=== PATIENT | female | born 1995 | race Caucasian/White ===

== ENCOUNTER 2020-04-29 19:15 | Inpatient (IN) | payer BC, MEDICAID, SELFPAY ==
[2020-04-29] VITALS (12 sets, daily range): BP systolic 107–159; BP diastolic 51–87; PULSE 73–111; RESP 17–18; TEMP 36.7–37.1; O2SAT 95–100; BMI 40.6
[2020-04-29] MEDS: Lactated Ringers 1,000 ML 999 ML IV (19:25)
[2020-04-29 19:53] LABS: Absolute Lymphocyte Count 1.83 X10^3/uL (0.83-4.51); Basophil# 0.02 X10^3/uL; Basophil% 0.2 % (0-1); Eosinophil# 0.17 X10^3/uL; Eosinophils% 1.9 % (0-5); Hematocrit 31.2 % (37-47); Hemoglobin 9.2 g/dL (12.0-15.0); Lymphocyte # 1.83 X10^3/ul (4.0); Lymphocyte % 20.3 % (19-41); Mean Corp Hgb Conc 29.5 g/dL (32-36); Mean Corpuscular Hgb 24.3 pg (27.0-32.0); Mean Corpuscular Volume 82.5 fL (81-99); Mean Platelet Vol. 10.5 fl (6.2-12.0); Monocyte% 8.9 % (0-10); NRBC Flagged by Analyzer 0.3 % (0-5); Neutrophil # 6.04 X10^3/uL (2.7-7.7); Neutrophil % 67.1 % (47-70); POSITIVE MORPHOLOGY YES; Platelet Count 253 K/mm3 (150-450); RBC Distribution Width CV 22.1 % (11.6-14.6); Red Blood Count 3.78 M/mm3 (4.2-5.4)
[2020-04-29 19:54] LABS: Differential Indicated SCAN CRITERIA MET
[2020-04-29 20:04] LABS: Partial Thromboplast Time 27.8 Seconds (24.1-36.2); Prothrombin Time (Protime)PT. 12.5 SECONDS (11.7-14.9)
[2020-04-29 20:08] LABS: AST(SGOT) 23 U/L (15-37); Alanine Aminotransfer ALT/SGPT 14 U/L (13-56); Creatinine, Serum 0.52 mg/dL (0.55-1.02); EST Glomerular Filtration Rate 153 mL/min (>60); Est Glom Filt Rate - Afr Amer 186 mL/min (>60); Uric Acid 4.2 mg/dL (2.6-6.0)
[2020-04-29 20:09] LABS: Protein, Urine (Random) 14.4 mg/dL (<11.9); Protein:Creat Ratio 303 mg/g CRE (0-200)
[2020-04-29] MEDS: Sodium Citrate/Citric Acid 30 ML UDC PO (20:19)
--- NOTE | 2020-04-29 20:19 | PCM.HP.OB ---
- Problem List (1) 38 weeks gestation of Status: Acute (2) History of section Status: Acute (3) Preeclampsia Status: Acute History Date of Admission: 04/29/20 Final OFELIA: 05/15/20 Gestational age: 37 Weeks and 5 Days History of this : This is a 24 year-old, G 3, P 2, at 38 weeks gestational age who presents to OB triage with elevated blood pressures at home and a persistent headache despite taking 1,000 mg of Tylenol. She sees an outside OB provider. She reports she went to her OB providers office today for an appointment. In the office she says her blood pressures were in the 150s over 90s and she reported a headache and visual changes. She says she was sent home after her appointment with her OB provider. She generally has not felt well, and she feels like something is wrong. She took 1000 mg of Tylenol and her headache did not go away. Earlier in the day she noted visual changes that have since resolved. Because she is generally feeling unwell she presented to our OB triage for further evaluation. She denies epigastric pain, right upper quadrant pain, nausea, vomiting. No vaginal bleeding leaking of fluid or contractions. Good movement. Allergies No Known Allergies Allergy (Verified 12/06/16 20:33) Home Medications: Home Medications Ferrous Sulfate [Iron Supplement] 325 mg PO BID 10/10/14 Ondansetron HCl [Zofran] 4 mg PO Q8H PRN PRN 12/06/16 Vits [Prenatabs FA] 1 tab PO DAILY 04/29/20 Smoking Status: Never smoker Number of Fetus(es): 1 NST - FHR Rate Baby A FHR Category:: Category I Uterine Activity:: Quiet History Past Pregnancies: Past Pregnancies Delivery Date Name GA/ Weeks Outcome Route Wt Sex Labor Length Anesthesia Delivery Location Provider FOB Labs: Unable to read labs that were scanned to us. Calling for another set of labs. If unable to obtain labs, will drawn NOB panel Expected Infant Delivery Method: Repeat Section Review of Systems Eyes: Denies: Blurred vision HEENT: Reports: Head Aches Cardiovascular: Denies: Chest Pain Respiratory: Denies: Cough, Shortness of Breath Gastrointestinal: Denies: Abdominal Pain Genitourinary: Denies: Dysuria Gynecological: Denies: Vaginal bleeding Neurological: Denies: Blurred vision, Double vision Psychiatric: Denies: Anxiety, Depression Hematologic/ Lymphatic: Denies: Easy Bruising, Easy Bleeding Physical Exam Vitals: Vital Signs Temp Pulse BP 98.8 F 110 H 150/87 H 04/29/20 18:38 04/29/20 19:48 04/29/20 19:48 General: Alert, No apparent distress HEENT: Atraumatic Lungs: Normal air movement Abdomen: Soft, Gravid, - - +RUQ tenderness Extremities:: No edema Neurological: Deep Tendon Reflexes 2+/4 and Symmetrical, Neuro grossly intact Estimated gestational size: Appropriate for gestational size Assessment/Plan All Active Problems 38 weeks gestation of (Acute) History of section (Acute) Preeclampsia (Acute) This is a 24 year-old, G 3, P 2, at 38 weeks gestational age admitted for a repeat section for pre-eclampsia. -She has had mild range blood pressures earlier in the office today, as well as at home. Since being in OB triage she has had persistent mild range blood pressures. She has had a persistent headache despite Tylenol. Her blood work is normal, but her protein creatinine ratio is 303. Discussed preeclampsia with patient. Discussed possibly needing magnesium for seizure prophylaxis, and indications for a magnesium drip. Recommended delivery. All questions answered. Discussed risk, benefits, alternatives to a repeat section. She has a history of anemia with a hemoglobin of 7 per her report in the . She refused IV iron transfusions. Hemoglobin now is 9. Discussed increased risk for a blood transfusion. The patient provided consent, and desires to proceed with a repeat section. Routine preop care. If unable to get records, will draw panel.
[2020-04-29] MEDS: Lactated Ringers 1,000 ML 150 ML IV (20:30)
[2020-04-29 20:31] LABS: Anisocytosis 3+; Platelet Estimate ADEQUATE (ADEQ); Polychromasia 1+
[2020-04-29] MEDS: Acetaminophen 500 MG Tablet 1000 MG PO (20:33)
[2020-04-29] MEDS: Cefazolin 2 GM in 0.9% Normal Saline 100 ML IV (20:39)
[2020-04-29 21:00] LABS: Amphetamine Urine VISTA NEGATIVE (<1000 ng/mL); Barbiturate Urine VISTA NEGATIVE (< 200 ng/mL); Benzodiazepine Urine VISTA NEGATIVE (< 200 ng/mL); Cocaine Urine VISTA NEGATIVE (< 300 ng/mL); Ecstacy Urine VISTA NEGATIVE (< 500 ng/mL); Methadone Urine VISTA NEGATIVE (< 300 ng/mL); PCP Urine VISTA NEGATIVE (< 25 ng/mL); THC Urine VISTA NEGATIVE (< 50 ng/mL); Vista UDS pH Range 7
--- NOTE | 2020-04-29 21:58 | PCM.PN.BLA ---
Progress Note Patient's NELSON has improved. She now has no pre-e symptoms. Discussed to let us know if she develops a NELSON or visual changes, and will start mag gtt at that time for seizure prophylaxis. Will also start mag gtt if she has any severe range BP's. STROKE Vital Signs/Narrative: Vital Signs Temp Pulse BP 04/29/20 19:48 110 H 150/87 H 04/29/20 19:11 111 H 159/87 H 04/29/20 18:53 97 147/81 H 04/29/20 18:38 98.8 F 97 153/71 H
[2020-04-29] MEDS: Oxytocin 30 units/NS 500 ml 30 UNITS/500 ML IV.SOLN 167 UNITS IV (22:00)
--- NOTE | 2020-04-29 22:04 | PCM.OPRPT ---
Problem List (1) 38 weeks gestation of Status: Acute (2) History of section Status: Acute (3) Preeclampsia Status: Acute Report of Operation Date of Procedure: 04/29/20 Pre-Operative Diagnosis: 38 week gestation, history of prior section, pre-eclampsia Post-Operative Diagnosis: As above Surgery/Procedure Performed:: RLTCS via pfannenstiel incision Description of Surgical Findings:: Moderate adhesive disease. The fascia was dense and adhered significantly to the rectus muscles. The rectus muscles were adhered in the midline. The bladder was moderately adhered to the anterior surface of the uterus. Normal-appearing uterus, bilateral tubes, bilateral ovaries. Clear fluid. Infant vertex presentation. Normal-appearing placenta with three-vessel cord. Type of Anesthesia:: Spinal Special Medications: None Specimen's removed: Placenta Drains: Mcnally Estimated Blood Loss (mL): 900 Fluids Replaced: 1700 Description of Procedure: Patient was taken to the operating room where spinal anesthesia was found to be adequate. She was prepped and draped in the dorsal position with a leftward tilt. A Pfannenstiel skin incision was made with a scalpel which was carried down to the underlying layer of fascia. The fascia was incised in the midline. The fascia was extended laterally using Valencia scissors. The fascia was noted to be densely adhered to the rectus muscles. The fascia was dissected off of the rectus muscles using a combination of sharp and blunt dissection. The rectus muscles were in the midline using a combination of sharp and blunt dissection. The peritoneum was then entered with good visualization of the bladder. The peritoneal incision was extended bluntly. The bladder was noted to be moderately adhered to the uterus. A bladder flap was created. A low transverse incision was made on the uterus. The membranes were ruptured for clear fluid. A viable female infant was delivered in vertex presentation without any force or delay. Vigorous female infant was delivered. The cord was clamped and cut after a 60 sec delay. There was manually extracted and noted to be normal-appearing with a three-vessel cord. Uterus was exteriorized from the abdomen. The uterus was cleared of all clot and debris. The hysterotomy was closed in a running locked fashion. Several additional [id number] sutures were placed for hemostasis. The uterus was then placed back in the abdomen. Hysterotomy was again inspected and noted to be hemostatic. The fascia was then closed in a running fashion. Subcutaneous space was irrigated and made hemostatic with the Bovie cautery. Subcutaneous space was reapproximated in a running fashion. The skin was closed in subcuticular fashion. Steri-Strips and dressing were placed. The instrument and sponge counts were correct. The patient was taken to the recovery room in stable condition. Grafts/Implants Used: None - Complications None - Admit VTE Documentation VTE Present on Admission: No VTE Mechan Device Prophylaxis: SCD's VTE Pharm Prophylaxis ordered?: Yes Delivery Classification: BOOGIE Amniotic Membrane Rupture Type: Artificial Amniotic Fluid Description: Clear Drain: Mcnally to straight drain Cord Entanglement: Around neck x 1, loose Nuchal Cord Compression: Without compression Cord Vessel Description: 3 Vessels Gender: Female Antibiotic Given: Ancef 2 grams IV x1 Pt instructed on risks of surgery: Bleeding, Infection, Need for Future C-Sections, Injury to surrounding structure(s) including bowel and bladder Complications: None
[2020-04-29 22:12] LABS: Group B Strep DNA By PCR Negative (Negative); Internal Control PASS; Probe Check PASS; Specimen Processing Control PASS
[2020-04-29 22:30] LABS: Chlamydia Trachomatis by PCR Negative (Negative); Neisserai gonorrhoeae by PCR Negative (Negative); Probe Check PASS; Sample Adequacy Control PASS; Specimen Processing Control PASS
[2020-04-29] MEDS: proCHLORPERazine 10 MG/2 ML Vial IV (22:50)
[2020-04-29] MEDS: 0.9% Saline Lock 10 ML Syringe IV (22:50)
[2020-04-29 23:22] LABS: HIV - WCH Non-Reactive (Nonreactive); Hepatitis B Surface Antigen Non-Reactive (Nonreactive); Hepatitis C Antibody Non-Reactive (Nonreactive)
[2020-04-30] VITALS (27 sets, daily range): BP systolic 112–150; BP diastolic 47–87; PULSE 77–99; RESP 12–18; TEMP 36–37.6; O2SAT 94–100
[2020-04-30] MEDS: Lactated Ringers 1,000 ML 100 ML IV ×2 (01:10→07:55)
[2020-04-30 01:57] LABS: Rapid Plasmin Reagin (RPR) NONREACTIVE (NONREACTIVE)
[2020-04-30] MEDS: Ondansetron 4 MG/2 ML Vial IV (02:22)
[2020-04-30] MEDS: Acetaminophen 500 MG Tablet 1000 MG PO ×4 (02:55→20:51)
[2020-04-30] MEDS: Ketorolac 30 MG/ML Syringe IV ×4 (04:00→21:58)
[2020-04-30 05:19] LABS: Hematocrit 26.9 % (37-47); Hemoglobin 7.7 g/dL (12.0-15.0); Mean Corp Hgb Conc 28.6 g/dL (32-36); Mean Corpuscular Hgb 24.2 pg (27.0-32.0); Mean Corpuscular Volume 84.6 fL (81-99); Mean Platelet Vol. 10.1 fl (6.2-12.0); POSITIVE MORPHOLOGY YES; Platelet Count 210 K/mm3 (150-450); RBC Distribution Width CV 22.2 % (11.6-14.6); RBC Distribution Width SD 53.7 fl (35.1-43.9); Red Blood Count 3.18 M/mm3 (4.2-5.4); Scan Indicated on CBC? Y/N YES- FLAGS NOTED; White Blood Count 11.9 K/mm3 (4.4-11.0)
[2020-04-30 05:51] LABS: ALB/GLOB Ratio 0.7 RATIO (0.9-2.4); AST(SGOT) 20 U/L (15-37); Alanine Aminotransfer ALT/SGPT 12 U/L (13-56); Albumin, Serum 2.1 g/dL (3.2-5.0); Alkaline Phosphatase 110 U/L (45-117); Anion Gap 9 (5-15); BUN 4 mg/dL (7-18); Calcium,Total 8.2 mg/dL (8.5-10.1); Chloride 109 mmol/L (98-107); EST Glomerular Filtration Rate 209 mL/min (>60); Est Glom Filt Rate - Afr Amer 252 mL/min (>60); Estimated Creatinine Clearance 188.89 ml/min; Globulin 2.9 g/dL (2.2-4.2); Glucose 78 mg/dL (74-106); Potassium 2.7 mmol/L (3.5-5.1); Sodium Level 143 mmol/L (136-145)
[2020-04-30 06:12] LABS: Differential Comment SCANNED
--- NOTE | 2020-04-30 06:12 | EKGRS_ITS ---
Test Reason : HIGH K Blood Pressure : / mmHG Vent. Rate : 075 BPM Atrial Rate : 075 BPM P-R Int : 174 ms QRS Dur : 080 ms QT Int : 402 ms P-R-T Axes : 030 024 016 degrees QTc Int : 448 ms Normal sinus rhythm Normal ECG Confirmed by BERNIE SANCHEZ, MILLIE ([id number]), associate entertainment editor JASSON JASON ([id number]) on 05/06/2020 1:15:53 PM Referred By: Breanna Bettencourt Confirmed By:MILLIE GIBBS MD
[2020-04-30 06:35] LABS: Phosphorus 4.3 mg/dL (2.5-4.9)
[2020-04-30] MEDS: Lactated Ringers 1,000 ML 999 ML IV (06:43)
[2020-04-30 07:22] LABS: Potassium 2.7 mmol/L (3.5-5.1)
[2020-04-30] MEDS: proCHLORPERazine 10 MG/2 ML Vial IV (07:25)
[2020-04-30] MEDS: Potassium Chloride 10mEq/100mL 10 MEQ/100 ML IV.SOLN. 100 MEQ IV BOLUS ×4 (07:56→11:30)
[2020-04-30 09:19] LABS: Rubella IgG 18.7 IU/mL
[2020-04-30] MEDS: Enoxaparin 40 MG/0.4 ML Syringe SC (09:59)
[2020-04-30] MEDS: Senna/Docusate Sodium 1 Tablet PO (09:59)
--- NOTE | 2020-04-30 10:24 | PN.OBGYN_ITS ---
Patient Problems: Active and Suspected Problems 38 weeks gestation of (Acute) History of section (Acute) Preeclampsia (Acute) Subjective: Patient is doing well this morning. She denies headache, vision changes, epigastric pain, right upper quadrant pain. She denies nausea or vomiting. She is ambulating with lightheadedness and dizziness. She reports extreme fatigue. She is tolerating a diet. Her pain is well controlled. Her Mcnally was removed but she has yet to spontaneously void. Lochia normal. - Physical Exam Vitals/I&O's: Vital Signs Temp Pulse Resp BP Pulse Ox 97.9 F 99 14 124/54 H 97 04/30/20 07:36 04/30/20 09:25 04/30/20 09:25 04/30/20 08:31 04/30/20 09:25 Oxygen Delivery Method Room Air Weight: 236 lb 8 oz Body Mass Index (BMI) 40.6 Intake and Output for Last 24 Hours 04/28/20 04/29/20 04/30/20 23:59 23:59 23:59 Intake Total 1132.5 / 3132.5 4156.67 / 4156.67 Output Total 825 / 825 Balance 1132.5 / 2907.5 3331.67 / 3331.67 General: Alert, No apparent distress HEENT: Atraumatic Lungs: Normal air movement Abdomen: Soft, - - ATTP, dressing c/d/i, FF@U Extremities: No Calf Tenderness Skin: No rashes Neurological: Deep Tendon Reflexes 2+/4 and Symmetrical, Neuro grossly intact Psych/Mental Status: Normal Affect, Appropriate Microbiology Past 72 Hours 04/29/20 Unknown Genital vaginal Group B Streptococcus Culture - Preliminary Laboratory Results 04/29/20 19:25: WBC 9.0, RBC 3.78 L, Hgb 9.2 L, Hct 31.2 L, MCV 82.5, MCH 24.3 L , MCHC 29.5 L, RDW Std Deviation 52.0 H, RDW Coeff of Dejah 22.1 H, Plt Count 253, MPV 10.5, Immature Gran % (Auto) 1.600 H, Neut % (Auto) 67.1, Lymph % (Auto) 20.3, [place] % (Auto) 8.9, Eos % (Auto) 1.9, Baso % (Auto) 0.2, Absolute Neuts (auto) 6.0, Absolute Lymphs (auto) 1.83, Nucleated RBC % 0.3, Platelet Estimate ADEQUATE, Polychromasia 1+, Anisocytosis 3+ 04/29/20 19:25: Blood Type O POSITIVE, Antibody Screen NEGATIVE 04/29/20 19:25: PT 12.5, INR 1.0, APTT 27.8 04/29/20 19:25: Creatinine 0.52 L, Estim Creat Clear Calc 145.30, Est GFR (MDRD) Af Amer 186, Est GFR (MDRD) Non-Af 153, Uric Acid 4.2, AST 23, ALT 14 04/29/20 19:25: Chlam trachomat DNA PCR Negative, N.gonorrhoeae DNA (PCR) Negative, Group B Strep DNA Negative, Specimen Comment Not Reportable 04/29/20 19:30: U Random Total Protein 14.4 H, Urine Creatinine 47.50, Protein/Creatinin Ratio 303 H 04/29/20 19:30: Urine Opiates Screen NEGATIVE, Urine Methadone Screen NEGATIVE, Ur Barbiturates Screen NEGATIVE, Ur Phencyclidine Scrn NEGATIVE, Ur Amphetamines Screen NEGATIVE, U Methamphetamin-MDMA NEGATIVE, U Benzodiazepines Scrn NEGATIVE, Urine Cocaine Screen NEGATIVE, U Cannabinoids Screen NEGATIVE, Ur Drug Screen Comment 04/29/20 19:45: COVID-19 ([facility]) Not Detected 04/29/20 20:31: Rubella IgG Antibody 18.7 04/29/20 20:31: RPR NONREACTIVE 04/29/20 20:31: Hep Bs Antigen Non-Reactive, Hepatitis C Antibody Non-Reactive, HIV 1&2 Antibody Non-Reactive 04/30/20 05:10: WBC 11.9 H, RBC 3.18 L, Hgb 7.7 L, Hct 26.9 L, MCV 84.6, MCH 24.2 L, MCHC 28.6 L, RDW Std Deviation 53.7 H, RDW Coeff of Dejah 22.2 H, Plt Count 210, MPV 10.1, Differential Comment SCANNED 04/30/20 05:10: Sodium 143, Potassium 2.7 L*, Chloride 109 H, Carbon Dioxide 25.0, Anion Gap 9, BUN 4 L, Creatinine 0.40 L, Estim Creat Clear Calc 188.89, Est GFR (MDRD) Af Amer 252, Est GFR (MDRD) Non-Af 209, BUN/Creatinine Ratio 10.0, Glucose 78, Calcium 8.2 L, Total Bilirubin 0.40, AST 20, ALT 12 L, Alkaline Phosphatase 110, Total Protein 5.0 L, Albumin 2.1 L, Globulin 2.9, Albumin/Globulin Ratio 0.7 L 04/30/20 05:10: Phosphorus 4.3 04/30/20 06:23: Potassium 2.7 L* Current Medications Acetaminophen (Tylenol) 1,000 mg PO Q6H [facility] Last Admin: 04/30/20 08:30 Dose: 1,000 mg Documented by: Bisacodyl (Dulcolax) 10 mg RECTAL UD PRN PRN Reason: If no BM Diphenhydramine HCl (Benadryl) 25 mg PO Q6H PRN PRN PRN Reason: ITCHING Stop: 04/30/20 22:07 Enoxaparin Sodium (Lovenox) 40 mg SC DAILY [facility] Last Admin: 04/30/20 09:59 Dose: 40 mg Documented by: Hydrocortisone (Hytone) 1 applic TOPICAL TID PRN PRN; Protocol PRN Reason: Discomfort Lactated Ringer's () 1,000 mls @ 100 mls/hr IV .Q10H [facility] Last Admin: 04/30/20 07:55 Dose: 100 mls/hr Documented by: Naloxone HCl 4 mg/ Dextrose 504 mls @ 0 mls/hr IV .Q0M PRN; Protocol PRN Reason: Respiratory depression Potassium Chloride () 10 meq in 100 mls @ 100 mls/hr IV BOLUS Q1H [facility] Stop: 04/30/20 11:29 Last Admin: 04/30/20 09:19 Dose: 100 mls/hr Documented by: Ibuprofen (Motrin) 600 mg PO Q6 [facility] Last Admin: 04/30/20 05:47 Dose: Not Given Documented by: Ketorolac Tromethamine (Toradol (Bkc)) 30 mg IV Q6H [facility] Stop: 04/30/20 20:31 Last Admin: 04/30/20 09:59 Dose: 30 mg Documented by: Methylergonovine Maleate (Methergine) 0.2 mg IM X1 PRN PRN Reason: Uterine Atony Nalbuphine HCl (Nubain) 5 mg IV Q3H PRN PRN PRN Reason: ITCHING Stop: 04/30/20 22:07 Naloxone HCl (Narcan) 0.02 mg IV Q1M PRN PRN Reason: RR <10 and pt unresponsive Ondansetron HCl (Zofran) 4 mg IV Q4H PRN PRN PRN Reason: Nausea Last Admin: 04/30/20 02:22 Dose: 4 mg Documented by: Oxycodone HCl (Oxyir) 5 - 10 mg PO Q4H PRN PRN PRN Reason: Pain Score 4-10/10 Prochlorperazine Edisylate (Compazine Iv) 10 mg IV Q6H PRN PRN PRN Reason: NAUSEA Last Admin: 04/30/20 07:25 Dose: 10 mg Documented by: Senna/Docusate Sodium (Senokot-S, Kimi-Colace) 1 tablet PO DAILY [facility] Last Admin: 04/30/20 09:59 Dose: 1 tablet Documented by: Simethicone (Mylicon) 80 mg PO PCHS PRN PRN Reason: Indigestion/stomach pain Sodium Chloride () 5 - 15 ml IV UD PRN PRN Reason: SALINE FLUSH Last Admin: 04/29/20 22:50 Dose: 10 ml Documented by: Medical Necessity - Tobacco Use Smoking Status: Never smoker Assessment/Plan All Active Problems 38 weeks gestation of (Acute) History of section (Acute) Preeclampsia (Acute) Patient is postop day 1 from a repeat section for preeclampsia. 1. Post-op state: She is doing well postoperatively. Hemoglobin is 7.7 this morning. She is symptomatic with fatigue, lightheadedness, dizziness. Reviewed risks, benefits, alternatives to receiving blood products and patient desires to proceed with transfusion. Will give 1 unit of packed red blood cells and recheck CBC in the morning. Routine post-op care. 2. : Baby in special care nursery. Routine care. 3. Pre-eclampsia. BP's normal. She has no symptoms of pre-e. Discussed to let us know if she develops NELSON or vision changes and will need mag gtt at that time. 4. Hypokalemia: EKG NSR. Medicine consulted for assistance with replacement. Appreciate assistance.
--- NOTE | 2020-04-30 11:00 | CON.PCM_ITS ---
Reason for Consult Date of Consultation: 04/30/20 Reason for Consultation: Consult requested for hypokalemia History of Present Illness: The patient is a 24 year old F who underwent a section for pre- eclampsia on 04/29. Follow up labs showed hypokalemia. Patient has no known h istory of kidney disease.[] Past Medical History Allergies No Known Allergies Allergy (Verified 12/06/16 20:33) Home Medications: Ambulatory Orders Medication Instructions Recorded Ferrous Sulfate [Iron Supplement] 325 mg PO BID 10/10/14 Ondansetron HCl [Zofran] 4 mg PO Q8H PRN PRN 12/06/16 Vits [Prenatabs FA] 1 tab PO DAILY 04/29/20 Surgical History: - - section Smoking Status: Never smoker Tobacco Use: Non-smoker Alcohol: None - *Family History Paternal History Items: Heart Disease Review of Systems Constitutional: Denies: Chills, Fever, Weight Change HEENT: Denies: Head Aches, Sinus Congestion, Sinus Drainage Cardiovascular: Reports: Edema. Denies: Chest Pain, Palpitations Respiratory: Denies: Cough, Shortness of breath at rest, Sputum production Gastrointestinal: Reports: Abdominal Pain. Denies: Nausea, Vomiting Genitourinary: Denies: Dysuria Musculoskeletal: Denies: Joint Pain, Joint Tenderness Skin: Denies: Rash, Wounds Neurological: Denies: Numbness, Tingling, Focal weakness Psychiatric: Denies: Anxiety, Depression Hematologic/ Lymphatic: Denies: Easy Bruising, Easy Bleeding, Hx of blood clot - All review of systems were negative except as mentioned above in the history of present illness and the other review of systems. Patient Problems: Active and Suspected Problems 38 weeks gestation of (Acute) History of section (Acute) Preeclampsia (Acute) - Physical Exam Vitals/I&O's: Vital Signs Temp Pulse Resp BP Pulse Ox 36.6 C 99 14 124/54 H 97 04/30/20 07:36 04/30/20 09:25 04/30/20 09:25 04/30/20 08:31 04/30/20 09:25 Oxygen Delivery Method Room Air Weight: 107.275 kg Body Mass Index (BMI) 40.6 Intake and Output for Last 24 Hours 04/28/20 04/29/20 04/30/20 23:59 23:59 23:59 Intake Total 1132.5 / 3132.5 4256.67 / 4256.67 Output Total 825 / 825 Balance 1132.5 / 2907.5 3431.67 / 3431.67 General: Alert, Cooperative, No apparent distress HEENT: Atraumatic, Normocephalic Oral: Moist Mucosa, No Gingival or Mucosal Lesions/ Ulcerations Neck: No Nodes, Thyroid Normal Size and Texture Lungs: Clear to auscultation, Normal air movement, No rhonchi, No wheeze, No rales Cardiovascular: Regular rate, Regular Rhythm, Normal S1, Normal S2, No murmurs Abdomen: Bowel Sounds Present, Soft, Non Tender, Non-Distended Extremities: No Calf Tenderness, Edema Skin: No rashes, No breakdown Psych/Mental Status: Normal Affect, Appropriate Microbiology Past 72 Hours 04/29/20 Unknown Genital vaginal Group B Streptococcus Culture - Preliminary Laboratory Results 04/29/20 19:25: WBC 9.0, RBC 3.78 L, Hgb 9.2 L, Hct 31.2 L, MCV 82.5, MCH 24.3 L , MCHC 29.5 L, RDW Std Deviation 52.0 H, RDW Coeff of Dejah 22.1 H, Plt Count 253, MPV 10.5, Immature Gran % (Auto) 1.600 H, Neut % (Auto) 67.1, Lymph % (Auto) 20.3, [place] % (Auto) 8.9, Eos % (Auto) 1.9, Baso % (Auto) 0.2, Absolute Neuts (auto) 6.0, Absolute Lymphs (auto) 1.83, Nucleated RBC % 0.3, Platelet Estimate ADEQUATE, Polychromasia 1+, Anisocytosis 3+ 04/29/20 19:25: Blood Type O POSITIVE, Antibody Screen NEGATIVE 04/29/20 19:25: PT 12.5, INR 1.0, APTT 27.8 04/29/20 19:25: Creatinine 0.52 L, Estim Creat Clear Calc 145.30, Est GFR (MDRD) Af Amer 186, Est GFR (MDRD) Non-Af 153, Uric Acid 4.2, AST 23, ALT 14 04/29/20 19:25: Chlam trachomat DNA PCR Negative, N.gonorrhoeae DNA (PCR) Negative, Group B Strep DNA Negative, Specimen Comment Not Reportable 04/29/20 19:30: U Random Total Protein 14.4 H, Urine Creatinine 47.50, Protein/Creatinin Ratio 303 H 04/29/20 19:30: Urine Opiates Screen NEGATIVE, Urine Methadone Screen NEGATIVE, Ur Barbiturates Screen NEGATIVE, Ur Phencyclidine Scrn NEGATIVE, Ur Amphetamines Screen NEGATIVE, U Methamphetamin-MDMA NEGATIVE, U Benzodiazepines Scrn NEGATIVE, Urine Cocaine Screen NEGATIVE, U Cannabinoids Screen NEGATIVE, Ur Drug Screen Comment 04/29/20 19:45: COVID-19 ([facility]) Not Detected 04/29/20 20:31: Rubella IgG Antibody 18.7 04/29/20 20:31: RPR NONREACTIVE 04/29/20 20:31: Hep Bs Antigen Non-Reactive, Hepatitis C Antibody Non-Reactive, HIV 1&2 Antibody Non-Reactive 04/30/20 05:10: WBC 11.9 H, RBC 3.18 L, Hgb 7.7 L, Hct 26.9 L, MCV 84.6, MCH 24.2 L, MCHC 28.6 L, RDW Std Deviation 53.7 H, RDW Coeff of Dejah 22.2 H, Plt Count 210, MPV 10.1, Differential Comment SCANNED 04/30/20 05:10: Sodium 143, Potassium 2.7 L*, Chloride 109 H, Carbon Dioxide 25.0, Anion Gap 9, BUN 4 L, Creatinine 0.40 L, Estim Creat Clear Calc 188.89, Est GFR (MDRD) Af Amer 252, Est GFR (MDRD) Non-Af 209, BUN/Creatinine Ratio 10.0, Glucose 78, Calcium 8.2 L, Total Bilirubin 0.40, AST 20, ALT 12 L, Alkaline Phosphatase 110, Total Protein 5.0 L, Albumin 2.1 L, Globulin 2.9, Albumin/Globulin Ratio 0.7 L 04/30/20 05:10: Phosphorus 4.3 04/30/20 06:23: Potassium 2.7 L* Current Medications Acetaminophen (Tylenol) 1,000 mg PO Q6H [facility] Last Admin: 04/30/20 08:30 Dose: 1,000 mg Documented by: Bisacodyl (Dulcolax) 10 mg RECTAL UD PRN PRN Reason: If no BM Diphenhydramine HCl (Benadryl) 25 mg PO Q6H PRN PRN PRN Reason: ITCHING Stop: 04/30/20 22:07 Enoxaparin Sodium (Lovenox) 40 mg SC DAILY [facility] Last Admin: 04/30/20 09:59 Dose: 40 mg Documented by: Hydrocortisone (Hytone) 1 applic TOPICAL TID PRN PRN; Protocol PRN Reason: Discomfort Lactated Ringer's () 1,000 mls @ 100 mls/hr IV .Q10H [facility] Last Admin: 04/30/20 07:55 Dose: 100 mls/hr Documented by: Naloxone HCl 4 mg/ Dextrose 504 mls @ 0 mls/hr IV .Q0M PRN; Protocol PRN Reason: Respiratory depression Potassium Chloride () 10 meq in 100 mls @ 100 mls/hr IV BOLUS Q1H [facility] Stop: 04/30/20 11:29 Last Admin: 04/30/20 10:28 Dose: 100 mls/hr Documented by: Ibuprofen (Motrin) 600 mg PO Q6 [facility] Last Admin: 04/30/20 05:47 Dose: Not Given Documented by: Ketorolac Tromethamine (Toradol (Bkc)) 30 mg IV Q6H [facility] Stop: 04/30/20 20:31 Last Admin: 04/30/20 09:59 Dose: 30 mg Documented by: Methylergonovine Maleate (Methergine) 0.2 mg IM X1 PRN PRN Reason: Uterine Atony Nalbuphine HCl (Nubain) 5 mg IV Q3H PRN PRN PRN Reason: ITCHING Stop: 04/30/20 22:07 Naloxone HCl (Narcan) 0.02 mg IV Q1M PRN PRN Reason: RR <10 and pt unresponsive Ondansetron HCl (Zofran) 4 mg IV Q4H PRN PRN PRN Reason: Nausea Last Admin: 04/30/20 02:22 Dose: 4 mg Documented by: Oxycodone HCl (Oxyir) 5 - 10 mg PO Q4H PRN PRN PRN Reason: Pain Score 4-10/10 Prochlorperazine Edisylate (Compazine Iv) 10 mg IV Q6H PRN PRN PRN Reason: NAUSEA Last Admin: 04/30/20 07:25 Dose: 10 mg Documented by: Senna/Docusate Sodium (Senokot-S, Kimi-Colace) 1 tablet PO DAILY [facility] Last Admin: 04/30/20 09:59 Dose: 1 tablet Documented by: Simethicone (Mylicon) 80 mg PO PCHS PRN PRN Reason: Indigestion/stomach pain Sodium Chloride () 5 - 15 ml IV UD PRN PRN Reason: SALINE FLUSH Last Admin: 04/29/20 22:50 Dose: 10 ml Documented by: Assessment/Plan All Active Problems 38 weeks gestation of (Acute) History of section (Acute) Preeclampsia (Acute) 1. hypokalemia * suspect due to IVF and surgery * replace * check magnesium * recheck this afternoon. 2. S/P section * mgmt per primary service. 3. Acute blood loss anemia * normocytic * monitor * transfuse for Hg less than 7 Thank you for the consult. Inpatient E&M: 66146 Init Hosp L2
[2020-04-30 13:33] LABS: Magnesium 1.4 mg/dL (1.6-2.6)
[2020-04-30 13:38] LABS: Anion Gap 8 (5-15); BUN 3 mg/dL (7-18); BUN/Creat Ratio 7.5 RATIO (10-20); Calcium,Total 8.2 mg/dL (8.5-10.1); Chloride 110 mmol/L (98-107); EST Glomerular Filtration Rate 209 mL/min (>60); Est Glom Filt Rate - Afr Amer 252 mL/min (>60); Estimated Creatinine Clearance 188.89 ml/min; Glucose 76 mg/dL (74-106); Potassium 3.3 mmol/L (3.5-5.1); Sodium Level 142 mmol/L (136-145)
[2020-04-30] MEDS: 0.9% Saline Lock 10 ML Syringe IV ×2 (18:27→21:59)
[2020-04-30] MEDS: Magnesium Sulfate 4gm/100mL 4 GM/100 ML IV.SOLN. IV (18:38)
[2020-04-30] MEDS: Lactated Ringers 1,000 ML 50 ML IV (18:42)
[2020-05-01 00:13] VITALS: BP 120/61; PULSE 92; RESP 18; TEMP 36.3; O2SAT 96
--- NOTE | 2020-05-01 00:30 | NURSING ---
Pump given to pt by SCN, encouraged pt to pump q3 hours if not feeding infant. Pt verbalizes understanding of pump.
[2020-05-01] MEDS: Acetaminophen 500 MG Tablet 1000 MG PO ×4 (03:05→22:50)
[2020-05-01 03:15] VITALS: BP 118/77; PULSE 81; RESP 16; TEMP 36.6; O2SAT 97
[2020-05-01] MEDS: Ibuprofen 600 MG Tablet PO ×3 (04:21→18:30)
[2020-05-01 06:17] LABS: Hematocrit 28.3 % (37-47); Hemoglobin 8.4 g/dL (12.0-15.0); Mean Corp Hgb Conc 29.7 g/dL (32-36); Mean Corpuscular Hgb 24.9 pg (27.0-32.0); Mean Platelet Vol. 10.3 fl (6.2-12.0); POSITIVE MORPHOLOGY YES; Platelet Count 229 K/mm3 (150-450); RBC Distribution Width CV 21.9 % (11.6-14.6); RBC Distribution Width SD 54.1 fl (35.1-43.9); Red Blood Count 3.37 M/mm3 (4.2-5.4); White Blood Count 9.8 K/mm3 (4.4-11.0)
[2020-05-01 06:24] LABS: Scan Indicated on CBC? Y/N YES- FLAGS NOTED
[2020-05-01] MEDS: oxyCODONE 5 MG Tablet PO ×3 (06:24→19:39)
[2020-05-01 06:43] LABS: Differential Comment SCANNED
[2020-05-01 06:48] LABS: ALB/GLOB Ratio 0.6 RATIO (0.9-2.4); AST(SGOT) 25 U/L (15-37); Alanine Aminotransfer ALT/SGPT 12 U/L (13-56); Albumin, Serum 2.1 g/dL (3.2-5.0); Alkaline Phosphatase 109 U/L (45-117); Anion Gap 7 (5-15); BUN 4 mg/dL (7-18); BUN/Creat Ratio 8.6 RATIO (10-20); Calcium,Total 8.5 mg/dL (8.5-10.1); Chloride 111 mmol/L (98-107); Creatinine, Serum 0.46 mg/dL (0.55-1.02); EST Glomerular Filtration Rate 175 mL/min (>60); Est Glom Filt Rate - Afr Amer 212 mL/min (>60); Estimated Creatinine Clearance 164.25 ml/min; Globulin 3.5 g/dL (2.2-4.2); Glucose 74 mg/dL (74-106); Potassium 3.4 mmol/L (3.5-5.1); Protein, Total 5.6 g/dL (6.4-8.2); Sodium Level 143 mmol/L (136-145)
--- NOTE | 2020-05-01 07:51 | PN.OBGYN_ITS ---
Patient Problems: Active and Suspected Problems 38 weeks gestation of (Acute) History of section (Acute) Preeclampsia (Acute) Subjective: Patient is doing well. She feels much improved today. Her fatigue is improved. She denies any lightheadedness or dizziness and is ambulating without difficulty. She denies any headaches, vision changes, upper abdominal pain. She denies any chest pain shortness of breath or leg pain. Lochia normal. She is tolerating regular diet without nausea or vomiting. Voiding without difficulty. She is breast-feeding. - Physical Exam Vitals/I&O's: Vital Signs Temp Pulse Resp BP Pulse Ox 97.9 F 81 16 118/77 97 05/01/20 03:15 05/01/20 03:15 05/01/20 03:15 05/01/20 03:15 05/01/20 03:15 Oxygen Delivery Method Room Air Weight: 236 lb 8 oz Body Mass Index (BMI) 40.6 Intake and Output for Last 24 Hours 04/29/20 04/30/20 05/01/20 23:59 23:59 23:59 Intake Total 1132.5 / 3132.5 5879.18 / 5879.18 Output Total 1325 / 1325 Balance 1132.5 / 2907.5 4554.18 / 4554.18 General: Alert, No apparent distress HEENT: Atraumatic Abdomen: Soft, - - ATTP, dressing c/d/i, FF@U-1 Extremities: No Calf Tenderness Skin: No rashes Neurological: Neuro grossly intact Psych/Mental Status: Normal Affect, Appropriate Microbiology Past 72 Hours 04/29/20 Unknown Genital vaginal Group B Streptococcus Culture - Preliminary Laboratory Results 04/29/20 19:25: Crossmatch See Detail 04/29/20 20:31: Rubella IgG Antibody 18.7 04/30/20 12:25: Magnesium 1.4 L 04/30/20 12:25: Sodium 142, Potassium 3.3 L, Chloride 110 H, Carbon Dioxide 24.0, Anion Gap 8, BUN 3 L, Creatinine 0.40 L, Estim Creat Clear Calc 188.89, Est GFR (MDRD) Af Amer 252, Est GFR (MDRD) Non-Af 209, BUN/Creatinine Ratio 7.5 L, Glucose 76, Calcium 8.2 L 05/01/20 06:07: WBC 9.8, RBC 3.37 L, Hgb 8.4 L, Hct 28.3 L, MCV 84.0, MCH 24.9 L , MCHC 29.7 L, RDW Std Deviation 54.1 H, RDW Coeff of Dejah 21.9 H, Plt Count 229, MPV 10.3, Differential Comment SCANNED 05/01/20 06:07: Sodium 143, Potassium 3.4 L, Chloride 111 H, Carbon Dioxide 25.0, Anion Gap 7, BUN 4 L, Creatinine 0.46 L, Estim Creat Clear Calc 164.25, Est GFR (MDRD) Af Amer 212, Est GFR (MDRD) Non-Af 175, BUN/Creatinine Ratio 8.6 L, Glucose 74, Calcium 8.5, Total Bilirubin 0.50, AST 25, ALT 12 L, Alkaline Phosphatase 109, Total Protein 5.6 L, Albumin 2.1 L, Globulin 3.5, Albumin/Globulin Ratio 0.6 L Current Medications Acetaminophen (Tylenol) 1,000 mg PO Q6H [facility] Last Admin: 05/01/20 03:05 Dose: 1,000 mg Documented by: Bisacodyl (Dulcolax) 10 mg RECTAL UD PRN PRN Reason: If no BM Enoxaparin Sodium (Lovenox) 40 mg SC DAILY [facility] Last Admin: 04/30/20 09:59 Dose: 40 mg Documented by: Hydrocortisone (Hytone) 1 applic TOPICAL TID PRN PRN; Protocol PRN Reason: Discomfort Naloxone HCl 4 mg/ Dextrose 504 mls @ 0 mls/hr IV .Q0M PRN; Protocol PRN Reason: Respiratory depression Ibuprofen (Motrin) 600 mg PO Q6H [facility] Last Admin: 05/01/20 04:21 Dose: 600 mg Documented by: Methylergonovine Maleate (Methergine) 0.2 mg IM X1 PRN PRN Reason: Uterine Atony Naloxone HCl (Narcan) 0.02 mg IV Q1M PRN PRN Reason: RR <10 and pt unresponsive Ondansetron HCl (Zofran) 4 mg IV Q4H PRN PRN PRN Reason: Nausea Last Admin: 04/30/20 02:22 Dose: 4 mg Documented by: Oxycodone HCl (Oxyir) 5 - 10 mg PO Q4H PRN PRN PRN Reason: Pain Score 4-10/10 Last Admin: 05/01/20 06:24 Dose: 5 mg Documented by: Prochlorperazine Edisylate (Compazine Iv) 10 mg IV Q6H PRN PRN PRN Reason: NAUSEA Last Admin: 04/30/20 07:25 Dose: 10 mg Documented by: Senna/Docusate Sodium (Senokot-S, Kimi-Colace) 1 tablet PO DAILY [facility] Last Admin: 04/30/20 09:59 Dose: 1 tablet Documented by: Simethicone (Mylicon) 80 mg PO PCHS PRN PRN Reason: Indigestion/stomach pain Sodium Chloride () 5 - 15 ml IV UD PRN PRN Reason: SALINE FLUSH Last Admin: 04/30/20 21:59 Dose: 10 ml Documented by: Medical Necessity - Tobacco Use Smoking Status: Never smoker Tobacco Use: Non-smoker Assessment/Plan All Active Problems 38 weeks gestation of (Acute) History of section (Acute) Preeclampsia (Acute) She is postop day 2 from a repeat for preeclampsia. 1. Preeclampsia-blood pressures have been normal. She remains asymptomatic without any symptoms of preeclampsia. Labs reviewed this morning. Discussed to let us know if she has any symptoms and will need magnesium drip for seizure prophylaxis. Continue to monitor blood pressures. 2. Status post [id number] 1 unit of packed red blood cells yesterday for hemoglobin of 7.7 and symptoms of anemia. Appropriate rise in hemoglobin this morning. She feels improved. Discussed oral iron at home. Otherwise routine postop care. 3. Hypokalemia-management per medicine. Appreciate assistance in this patient's care. 4. Dispo: Patient working on breast-feeding. to see today. Baby is in special care nursery. Possible discharge tomorrow.
[2020-05-01] MEDS: Senna/Docusate Sodium 1 Tablet PO (07:59)
[2020-05-01 08:09] VITALS: BP 121/85; PULSE 73; RESP 18; TEMP 36.6; O2SAT 97
[2020-05-01] MEDS: Enoxaparin 40 MG/0.4 ML Syringe SC (10:16)
--- NOTE | 2020-05-01 11:06 | PN_ITS ---
Patient Problems: Active and Suspected Problems 38 weeks gestation of (Acute) History of section (Acute) Preeclampsia (Acute) Subjective: Feels well. No new complaints. Vitals/I&O's: Vital Signs Temp Pulse Resp BP Pulse Ox 36.6 C 73 18 121/85 H 97 05/01/20 08:09 05/01/20 08:09 05/01/20 08:09 05/01/20 08:09 05/01/20 08:09 Oxygen Delivery Method Room Air Weight: 107.275 kg Body Mass Index (BMI) 40.6 Intake and Output for Last 24 Hours 04/29/20 04/30/20 05/01/20 23:59 23:59 23:59 Intake Total 1132.5 / 3132.5 5879.18 / 5879.18 Output Total 1325 / 1325 Balance 1132.5 / 2907.5 4554.18 / 4554.18 General: Alert, No apparent distress HEENT: Atraumatic, Normocephalic Psych/Mental Status: Normal Affect, Appropriate Microbiology Past 72 Hours 04/29/20 Unknown Genital vaginal Group B Streptococcus Culture - Preliminary Group B Beta Streptococcus is not isolated. Laboratory Results 04/29/20 19:25: Crossmatch See Detail 04/30/20 12:25: Magnesium 1.4 L 04/30/20 12:25: Sodium 142, Potassium 3.3 L, Chloride 110 H, Carbon Dioxide 24.0, Anion Gap 8, BUN 3 L, Creatinine 0.40 L, Estim Creat Clear Calc 188.89, Est GFR (MDRD) Af Amer 252, Est GFR (MDRD) Non-Af 209, BUN/Creatinine Ratio 7.5 L, Glucose 76, Calcium 8.2 L 05/01/20 06:07: WBC 9.8, RBC 3.37 L, Hgb 8.4 L, Hct 28.3 L, MCV 84.0, MCH 24.9 L , MCHC 29.7 L, RDW Std Deviation 54.1 H, RDW Coeff of Dejah 21.9 H, Plt Count 229, MPV 10.3, Differential Comment SCANNED 05/01/20 06:07: Sodium 143, Potassium 3.4 L, Chloride 111 H, Carbon Dioxide 25.0, Anion Gap 7, BUN 4 L, Creatinine 0.46 L, Estim Creat Clear Calc 164.25, Est GFR (MDRD) Af Amer 212, Est GFR (MDRD) Non-Af 175, BUN/Creatinine Ratio 8.6 L, Glucose 74, Calcium 8.5, Total Bilirubin 0.50, AST 25, ALT 12 L, Alkaline Phosphatase 109, Total Protein 5.6 L, Albumin 2.1 L, Globulin 3.5, Albumin/Globulin Ratio 0.6 L Current Medications Acetaminophen (Tylenol) 1,000 mg PO Q6H [facility] Last Admin: 05/01/20 10:16 Dose: 1,000 mg Documented by: Bisacodyl (Dulcolax) 10 mg RECTAL UD PRN PRN Reason: If no BM Enoxaparin Sodium (Lovenox) 40 mg SC DAILY [facility] Last Admin: 05/01/20 10:16 Dose: 40 mg Documented by: Hydrocortisone (Hytone) 1 applic TOPICAL TID PRN PRN; Protocol PRN Reason: Discomfort Naloxone HCl 4 mg/ Dextrose 504 mls @ 0 mls/hr IV .Q0M PRN; Protocol PRN Reason: Respiratory depression Ibuprofen (Motrin) 600 mg PO Q6H [facility] Last Admin: 05/01/20 10:15 Dose: 600 mg Documented by: Methylergonovine Maleate (Methergine) 0.2 mg IM X1 PRN PRN Reason: Uterine Atony Naloxone HCl (Narcan) 0.02 mg IV Q1M PRN PRN Reason: RR <10 and pt unresponsive Ondansetron HCl (Zofran) 4 mg IV Q4H PRN PRN PRN Reason: Nausea Last Admin: 04/30/20 02:22 Dose: 4 mg Documented by: Oxycodone HCl (Oxyir) 5 - 10 mg PO Q4H PRN PRN PRN Reason: Pain Score 4-10/10 Last Admin: 05/01/20 06:24 Dose: 5 mg Documented by: Prochlorperazine Edisylate (Compazine Iv) 10 mg IV Q6H PRN PRN PRN Reason: NAUSEA Last Admin: 04/30/20 07:25 Dose: 10 mg Documented by: Senna/Docusate Sodium (Senokot-S, Kimi-Colace) 1 tablet PO DAILY [facility] Last Admin: 05/01/20 07:59 Dose: 1 tablet Documented by: Simethicone (Mylicon) 80 mg PO PCHS PRN PRN Reason: Indigestion/stomach pain Sodium Chloride () 5 - 15 ml IV UD PRN PRN Reason: SALINE FLUSH Last Admin: 04/30/20 21:59 Dose: 10 ml Documented by: STROKE Vital Signs/Narrative: Vital Signs Temp Pulse Resp BP Pulse Ox 05/01/20 08:09 36.6 C 73 18 121/85 H 97 Medical Necessity - Tobacco Use Smoking Status: Never smoker Tobacco Use: Non-smoker Assessment/Plan All Active Problems 38 weeks gestation of (Acute) History of section (Acute) Preeclampsia (Acute) 1. hypokalemia * improving * suspect due to IVF and surgery * recheck on 05/02 2. hypomagnesemia * replaced 04/30 3. S/P section * mgmt per primary service. 4. Acute blood loss anemia * normocytic * monitor Medically stable for discharge. Will follow while hospitalized. Inpatient E&M: 39925 Subs Hosp L1
[2020-05-01 14:40] VITALS: BP 135/87; PULSE 79; RESP 18; TEMP 36.9
[2020-05-01 19:51] VITALS: RESP 18; TEMP 36.4
[2020-05-01 21:15] VITALS: BP 140/74; PULSE 78; RESP 18
[2020-05-01] MEDS: 0.9% Saline Lock 10 ML Syringe IV (22:50)
[2020-05-02] MEDS: Ibuprofen 600 MG Tablet PO ×3 (00:25→12:28)
[2020-05-02 03:15] VITALS: BP 132/97; PULSE 78; RESP 16; TEMP 36.6; O2SAT 96
[2020-05-02] MEDS: Acetaminophen 500 MG Tablet 1000 MG PO ×2 (05:17→12:28)
[2020-05-02] MEDS: oxyCODONE 5 MG Tablet PO (07:48)
[2020-05-02] MEDS: Senna/Docusate Sodium 1 Tablet PO (07:49)
[2020-05-02 07:52] VITALS: BP 131/90; PULSE 88; RESP 16; TEMP 36.8
[2020-05-02 08:08] LABS: Anion Gap 7 (5-15); BUN 6 mg/dL (7-18); BUN/Creat Ratio 11.1 RATIO (10-20); Calcium,Total 8.6 mg/dL (8.5-10.1); Chloride 110 mmol/L (98-107); Creatinine, Serum 0.54 mg/dL (0.55-1.02); EST Glomerular Filtration Rate 148 mL/min (>60); Est Glom Filt Rate - Afr Amer 179 mL/min (>60); Estimated Creatinine Clearance 139.92 ml/min; Glucose 72 mg/dL (74-106); Potassium 3.7 mmol/L (3.5-5.1); Sodium Level 141 mmol/L (136-145)
--- NOTE | 2020-05-02 09:05 | PCM.PN.OB ---
Patient Problems: Active and Suspected Problems 38 weeks gestation of (Acute) History of section (Acute) Preeclampsia (Acute) Subjective: Patient is doing well this morning. She was seen in special care nursery. She is ambulating and voiding without difficulty. She denies any lightheadedness, dizziness, chest pain, shortness of breath, leg pain. Lochia normal. She is breast-feeding without complaints. She is tolerating regular diet. She is passing flatus. She feels ready to go home today. Denies any headache, vision changes, upper abdominal pain. - Physical Exam Vitals/I&O's: Vital Signs Temp Pulse Resp BP Pulse Ox 98.2 F 88 16 131/90 H 96 05/02/20 07:52 05/02/20 07:52 05/02/20 07:52 05/02/20 07:52 05/02/20 03:15 Oxygen Delivery Method Room Air Weight: 236 lb 8 oz Body Mass Index (BMI) 40.6 Intake and Output for Last 24 Hours 04/30/20 05/01/20 05/02/20 23:59 23:59 23:59 Intake Total 5879.18 / 5879.18 Output Total 1325 / 1325 Balance 4554.18 / 4554.18 General: Alert, No apparent distress HEENT: Atraumatic Lungs: Normal air movement Abdomen: Non-Distended Extremities: No edema Skin: No rashes Neurological: Neuro grossly intact Psych/Mental Status: Normal Affect, Appropriate Microbiology Past 72 Hours 04/29/20 Unknown Genital vaginal Group B Streptococcus Culture - Final Group B Beta Streptococcus is not isolated. Laboratory Results 05/02/20 05:25: Sodium Cancelled, Potassium Cancelled, Chloride Cancelled, Carbon Dioxide Cancelled, Anion Gap Cancelled, BUN Cancelled, Creatinine Cancelled, Estim Creat Clear Calc Cancelled, Est GFR (MDRD) Af Amer Cancelled, Est GFR (MDRD) Non-Af Cancelled, BUN/Creatinine Ratio Cancelled, Glucose Cancelled, Calcium Cancelled 05/02/20 06:47: Sodium 141, Potassium 3.7, Chloride 110 H, Carbon Dioxide 24.0, Anion Gap 7, BUN 6 L, Creatinine 0.54 L, Estim Creat Clear Calc 139.92, Est GFR (MDRD) Af Amer 179, Est GFR (MDRD) Non-Af 148, BUN/Creatinine Ratio 11.1, Glucose 72 L, Calcium 8.6 Current Medications Acetaminophen (Tylenol) 1,000 mg PO Q6H [facility] Last Admin: 05/02/20 05:17 Dose: 1,000 mg Documented by: Bisacodyl (Dulcolax) 10 mg RECTAL UD PRN PRN Reason: If no BM Enoxaparin Sodium (Lovenox) 40 mg SC DAILY [facility] Last Admin: 05/01/20 10:16 Dose: 40 mg Documented by: Hydrocortisone (Hytone) 1 applic TOPICAL TID PRN PRN; Protocol PRN Reason: Discomfort Naloxone HCl 4 mg/ Dextrose 504 mls @ 0 mls/hr IV .Q0M PRN; Protocol PRN Reason: Respiratory depression Ibuprofen (Motrin) 600 mg PO Q6H [facility] Last Admin: 05/02/20 05:17 Dose: 600 mg Documented by: Methylergonovine Maleate (Methergine) 0.2 mg IM X1 PRN PRN Reason: Uterine Atony Naloxone HCl (Narcan) 0.02 mg IV Q1M PRN PRN Reason: RR <10 and pt unresponsive Ondansetron HCl (Zofran) 4 mg IV Q4H PRN PRN PRN Reason: Nausea Last Admin: 04/30/20 02:22 Dose: 4 mg Documented by: Oxycodone HCl (Oxyir) 5 - 10 mg PO Q4H PRN PRN PRN Reason: Pain Score 4-10/10 Last Admin: 05/02/20 07:48 Dose: 10 mg Documented by: Prochlorperazine Edisylate (Compazine Iv) 10 mg IV Q6H PRN PRN PRN Reason: NAUSEA Last Admin: 04/30/20 07:25 Dose: 10 mg Documented by: Senna/Docusate Sodium (Senokot-S, Kimi-Colace) 1 tablet PO DAILY [facility] Last Admin: 05/02/20 07:49 Dose: 1 tablet Documented by: Simethicone (Mylicon) 80 mg PO PCHS PRN PRN Reason: Indigestion/stomach pain Sodium Chloride () 5 - 15 ml IV UD PRN PRN Reason: SALINE FLUSH Last Admin: 05/01/20 22:50 Dose: 10 ml Documented by: Medical Necessity - Tobacco Use Smoking Status: Never smoker Tobacco Use: Non-smoker Assessment/Plan All Active Problems 38 weeks gestation of (Acute) History of section (Acute) Preeclampsia (Acute) Patient is postop day 3 from a repeat section for preeclampsia. - Pre-e: Her blood pressures are normal to mild range. Will start labetalol 100 p.o. twice daily. She has no symptoms of preeclampsia this morning. We will continue to monitor blood pressures today and if patient does well with labetalol will discharge home on labetalol. -Post-op: Meeting all milestones for discharge. - Hypokalemia: Medicine following, and appreciate assistance in this patient's care. - Dispo: Discharge home later this afternoon following further recommendations by medicine, and further monitoring of patient's blood pressures. Discussed iron supplementation at home for acute blood loss anemia. Discussed signs and symptoms of worsening preeclampsia and when to call. Reviewed discharge instructions. She was instructed to follow-up next week for blood pressure and incision check.
--- NOTE | 2020-05-02 09:13 | DCINST_ITS ---
Discharge Diet: No Restrictions Discharge Activity: May not drive while taking narcotic pain medications., May Shower May resume sexual activity in: 6 weeks Ice area for (Minutes): 15 Weight Bearing Status: Weight bearing as tolerated Lifting Restrictions: Nothing heavier than 10-15 pounds Call your doctor if your incision/area has: Sudden Increased Bleeding, Increased Pain/ Swelling, Increased Redness, Foul Smelling Discharge, Swelling at the incision site Call your doctor if you observe: Fever of 101 or Higher, Inability to urinate, Inability to have a bowel movement, Using more than one pad per hour, Shortness of breath, Dizziness, Chest pain, Increased palpitations (irregular heartbeat), Calf discomfort, Uncontrolled pain Suture Line Care: Avoid Pulling/Pushing, Avoid Pinching/Bending Remove Dressing in (days):: 0 - Remove today in shower Cleanse incision/area with: Soap & Water Additional Instructions: If you experience any of the following, contact your healthcare provider. * Bleeding that soaks a pad every hour for 2 hours * Fever 100.4 or higher * Unrelieved incision or abdominal pain * Swelling, redness, discharge or bleeding from your incision or episiotomy site * Your incision begins to separate * Problems urinating (including inability to urinate or burning while urinating). * Visual changes * Severe headache * Flu-like symptoms * Pain or redness in one of both of your breasts * Pain, warmth, tenderness or swelling in your legs, especially the calf area * Frequent nausea and vomiting * Symptoms of depression or anxiety If you experience any of the following, call 911 or go to the nearest Emergency Room. * Chest pain * Problems breathing * Seizure activity * Partial or complete paralysis of a body part, slurred speech, weakness or drooping of the face, or a sudden inability to walk or hold your balance Allergies/Adverse Reactions: Allergies No Known Allergies Allergy (Verified 12/06/16 20:33) Medications to take at Discharge Ferrous Sulfate [Iron Supplement] 325 mg PO BID 10/10/14 Ondansetron HCl [Zofran] 4 mg PO Q8H PRN PRN 12/06/16 Vits [Prenatabs FA] 1 tab PO DAILY 04/29/20 Docusate Sodium [Colace] 100 mg PO BID PRN PRN #60 cap 05/02/20 Ibuprofen [Motrin] 600 mg PO Q6H PRN PRN #60 tab 05/02/20 Labetalol [Trandate (Beta Franco)] 100 mg PO BID #60 tab 05/02/20 Oxycodone HCl/Acetaminophen [Percocet 5/325] 1 tab PO Q6H PRN PRN 7 Days #20 tab 05/02/20 The following prescriptions were given: Docusate Sodium [Colace] 100 mg PO BID PRN PRN #60 cap PRN Reason: Constipation Transmission Status: Pending to [facility] Ibuprofen [Motrin] 600 mg PO Q6H PRN PRN #60 tab PRN Reason: Pain Score 1-10/10 Transmission Status: Pending to [facility] Oxycodone HCl/Acetaminophen [Percocet 5/325] 1 tab PO Q6H PRN PRN 7 Days #20 tab PRN Reason: Pain Score 6-10/10 Transmission Status: Sent to [facility] Labetalol [Trandate (Beta Franco)] 100 mg PO BID #60 tab Transmission Status: Pending to [facility] Follow-Up: Call to make an appointment with your doctor for an incision check in 1-2 weeks. You will also need a 6 week post- follow up appointment. Test results from this visit will be discussed in further detail at your follow- up appointment, if applicable. Please Follow Up With: Breanna Bettencourt DO When: 1 week for BP and incision check. Then also in 6 weeks for Proposed Discharge Date: 05/02/20
--- NOTE | 2020-05-02 09:15 | DS.PCM_ITS ---
Discharge Date and Diagnosis Date of Admission: 04/29/20 Date of Discharge: 05/02/20 - Primary Discharge Diagnosis Acute Problems: Active Problems 38 weeks gestation of (Acute) History of section (Acute) Preeclampsia (Acute) Hospital Course and Treatment Operations: - - [facility] Summary of Care Provided: The patient is a 24 year old F [] presented at 38 weeks gestation with newl y elevated blood pressures, a headache, and an elevated protein creatinine ratio. She has a history of 2 prior sections. She had a repeat section for preeclampsia. See operative report for details. Her headache had resolved, and she remained asymptomatic. Her blood pressures remained in the mild range. She was never started on a magnesium drip for seizure prophylaxis given preeclampsia without severe features. She was started on labetalol 100 mg p.o. twice daily postoperatively. She was also noted to have hypokalemia postoperatively and medicine was consulted for management. Hypokalemia was thought to be secondary to surgery and IV fluid hydration. The patient was ambulating, voiding, tolerating regular diet, and pain was controlled on day of discharge. She was discharged home in good condition on postop day 3. She was instructed to follow-up in the office for a blood pressure check. - Physical Exam Vitals/I&O's: Vital Signs Temp Pulse Resp BP Pulse Ox 98.2 F 88 16 131/90 H 96 05/02/20 07:52 05/02/20 07:52 05/02/20 07:52 05/02/20 07:52 05/02/20 03:15 Oxygen Delivery Method Room Air Weight: 236 lb 8 oz Body Mass Index (BMI) 40.6 Intake and Output for Last 24 Hours 04/30/20 05/01/20 05/02/20 23:59 23:59 23:59 Intake Total 5879.18 / 5879.18 Output Total 1325 / 1325 Balance 4554.18 / 4554.18 Microbiology Past 72 Hours 04/29/20 Unknown Genital vaginal Group B Streptococcus Culture - Final Group B Beta Streptococcus is not isolated. Laboratory Results 05/02/20 05:25: Sodium Cancelled, Potassium Cancelled, Chloride Cancelled, Carbon Dioxide Cancelled, Anion Gap Cancelled, BUN Cancelled, Creatinine Cancelled, Estim Creat Clear Calc Cancelled, Est GFR (MDRD) Af Amer Cancelled, Est GFR (MDRD) Non-Af Cancelled, BUN/Creatinine Ratio Cancelled, Glucose Cancelled, Calcium Cancelled 05/02/20 06:47: Sodium 141, Potassium 3.7, Chloride 110 H, Carbon Dioxide 24.0, Anion Gap 7, BUN 6 L, Creatinine 0.54 L, Estim Creat Clear Calc 139.92, Est GFR (MDRD) Af Amer 179, Est GFR (MDRD) Non-Af 148, BUN/Creatinine Ratio 11.1, Glucose 72 L, Calcium 8.6 Current Medications Acetaminophen (Tylenol) 1,000 mg PO Q6H [facility] Last Admin: 05/02/20 05:17 Dose: 1,000 mg Documented by: Bisacodyl (Dulcolax) 10 mg RECTAL UD PRN PRN Reason: If no BM Enoxaparin Sodium (Lovenox) 40 mg SC DAILY [facility] Last Admin: 05/01/20 10:16 Dose: 40 mg Documented by: Hydrocortisone (Hytone) 1 applic TOPICAL TID PRN PRN; Protocol PRN Reason: Discomfort Naloxone HCl 4 mg/ Dextrose 504 mls @ 0 mls/hr IV .Q0M PRN; Protocol PRN Reason: Respiratory depression Ibuprofen (Motrin) 600 mg PO Q6H [facility] Last Admin: 05/02/20 05:17 Dose: 600 mg Documented by: Labetalol HCl (Trandate) 100 mg PO BID [facility] Methylergonovine Maleate (Methergine) 0.2 mg IM X1 PRN PRN Reason: Uterine Atony Naloxone HCl (Narcan) 0.02 mg IV Q1M PRN PRN Reason: RR <10 and pt unresponsive Ondansetron HCl (Zofran) 4 mg IV Q4H PRN PRN PRN Reason: Nausea Last Admin: 04/30/20 02:22 Dose: 4 mg Documented by: Oxycodone HCl (Oxyir) 5 - 10 mg PO Q4H PRN PRN PRN Reason: Pain Score 4-10/10 Last Admin: 05/02/20 07:48 Dose: 10 mg Documented by: Prochlorperazine Edisylate (Compazine Iv) 10 mg IV Q6H PRN PRN PRN Reason: NAUSEA Last Admin: 04/30/20 07:25 Dose: 10 mg Documented by: Senna/Docusate Sodium (Senokot-S, Kimi-Colace) 1 tablet PO DAILY [facility] Last Admin: 05/02/20 07:49 Dose: 1 tablet Documented by: Simethicone (Mylicon) 80 mg PO PCHS PRN PRN Reason: Indigestion/stomach pain Sodium Chloride () 5 - 15 ml IV UD PRN PRN Reason: SALINE FLUSH Last Admin: 05/01/20 22:50 Dose: 10 ml Documented by: Discharge Diet: No Restrictions Discharge Activity: May not drive while taking narcotic pain medications., May Shower May resume sexual activity in: 6 weeks Ice area for (Minutes): 15 Weight Bearing Status: Weight bearing as tolerated Call your doctor if your incision/area has: Sudden Increased Bleeding, Increased Pain/ Swelling, Increased Redness, Foul Smelling Discharge, Swelling at the incision site Call your doctor if you observe: Fever of 101 or Higher, Inability to urinate, Inability to have a bowel movement, Using more than one pad per hour, Shortness of breath, Dizziness, Chest pain, Increased palpitations (irregular heartbeat), Calf discomfort, Uncontrolled pain Suture Line Care: Avoid Pulling/Pushing, Avoid Pinching/Bending Remove Dressing in (days):: 0 - Remove today in shower Cleanse incision/area with: Soap & Water Home Medications: Medications to take at Discharge Ferrous Sulfate [Iron Supplement] 325 mg PO BID 10/10/14 Ondansetron HCl [Zofran] 4 mg PO Q8H PRN PRN 12/06/16 Vits [Prenatabs FA] 1 tab PO DAILY 04/29/20 Docusate Sodium [Colace] 100 mg PO BID PRN PRN #60 cap 05/02/20 Ibuprofen [Motrin] 600 mg PO Q6H PRN PRN #60 tab 05/02/20 Labetalol [Trandate (Beta Franco)] 100 mg PO BID #60 tab 05/02/20 Oxycodone HCl/Acetaminophen [Percocet 5/325] 1 tab PO Q6H PRN PRN 7 Days #20 tab 05/02/20 Following Prescrptions Were Given to Patient: Docusate Sodium [Colace] 100 mg PO BID PRN PRN #60 cap PRN Reason: Constipation Transmission Status: Received by [facility] Ibuprofen [Motrin] 600 mg PO Q6H PRN PRN #60 tab PRN Reason: Pain Score 1-10/10 Transmission Status: Received by [facility] Oxycodone HCl/Acetaminophen [Percocet 5/325] 1 tab PO Q6H PRN PRN 7 Days #20 tab PRN Reason: Pain Score 6-10/10 Transmission Status: Received by [facility] Labetalol [Trandate (Beta Franco)] 100 mg PO BID #60 tab Transmission Status: Received by [facility] Please Follow Up With: Breanna Bettencourt DO When: 1 week for BP and incision check. Then also in 6 weeks for Medical Necessity - Tobacco Use Smoking Status: Never smoker Tobacco Use: Non-smoker Meaningful Use Info Meaningful Use Diagnoses (Choose all that apply): None applicable
[2020-05-02] MEDS: Enoxaparin 40 MG/0.4 ML Syringe SC (10:19)
[2020-05-02] MEDS: Labetalol 100 MG Tablet PO (10:20)
--- NOTE | 2020-05-02 11:02 | PN_ITS ---
Patient Problems: Active and Suspected Problems 38 weeks gestation of (Acute) History of section (Acute) Preeclampsia (Acute) Subjective: Feels well. Denies any new complaints. Vitals/I&O's: Vital Signs Temp Pulse Resp BP Pulse Ox 36.8 C 88 16 131/90 H 96 05/02/20 07:52 05/02/20 07:52 05/02/20 07:52 05/02/20 07:52 05/02/20 03:15 Oxygen Delivery Method Room Air Weight: 107.275 kg Body Mass Index (BMI) 40.6 Intake and Output for Last 24 Hours 04/30/20 05/01/20 05/02/20 23:59 23:59 23:59 Intake Total 5879.18 / 5879.18 Output Total 1325 / 1325 Balance 4554.18 / 4554.18 General: Alert, No apparent distress, - - sitting up in bed. HEENT: Atraumatic, Normocephalic Psych/Mental Status: Normal Affect, Appropriate Microbiology Past 72 Hours 04/29/20 Unknown Genital vaginal Group B Streptococcus Culture - Final Group B Beta Streptococcus is not isolated. Laboratory Results 05/02/20 05:25: Sodium Cancelled, Potassium Cancelled, Chloride Cancelled, Carbon Dioxide Cancelled, Anion Gap Cancelled, BUN Cancelled, Creatinine Cancelled, Estim Creat Clear Calc Cancelled, Est GFR (MDRD) Af Amer Cancelled, Est GFR (MDRD) Non-Af Cancelled, BUN/Creatinine Ratio Cancelled, Glucose Cancelled, Calcium Cancelled 05/02/20 06:47: Sodium 141, Potassium 3.7, Chloride 110 H, Carbon Dioxide 24.0, Anion Gap 7, BUN 6 L, Creatinine 0.54 L, Estim Creat Clear Calc 139.92, Est GFR (MDRD) Af Amer 179, Est GFR (MDRD) Non-Af 148, BUN/Creatinine Ratio 11.1, Glucose 72 L, Calcium 8.6 Current Medications Acetaminophen (Tylenol) 1,000 mg PO Q6H [facility] Last Admin: 05/02/20 05:17 Dose: 1,000 mg Documented by: Bisacodyl (Dulcolax) 10 mg RECTAL UD PRN PRN Reason: If no BM Enoxaparin Sodium (Lovenox) 40 mg SC DAILY [facility] Last Admin: 05/02/20 10:19 Dose: 40 mg Documented by: Hydrocortisone (Hytone) 1 applic TOPICAL TID PRN PRN; Protocol PRN Reason: Discomfort Naloxone HCl 4 mg/ Dextrose 504 mls @ 0 mls/hr IV .Q0M PRN; Protocol PRN Reason: Respiratory depression Ibuprofen (Motrin) 600 mg PO Q6H [facility] Last Admin: 05/02/20 05:17 Dose: 600 mg Documented by: Labetalol HCl (Trandate) 100 mg PO BID [facility] Last Admin: 05/02/20 10:20 Dose: 100 mg Documented by: Methylergonovine Maleate (Methergine) 0.2 mg IM X1 PRN PRN Reason: Uterine Atony Naloxone HCl (Narcan) 0.02 mg IV Q1M PRN PRN Reason: RR <10 and pt unresponsive Ondansetron HCl (Zofran) 4 mg IV Q4H PRN PRN PRN Reason: Nausea Last Admin: 04/30/20 02:22 Dose: 4 mg Documented by: Oxycodone HCl (Oxyir) 5 - 10 mg PO Q4H PRN PRN PRN Reason: Pain Score 4-10/10 Last Admin: 05/02/20 07:48 Dose: 10 mg Documented by: Prochlorperazine Edisylate (Compazine Iv) 10 mg IV Q6H PRN PRN PRN Reason: NAUSEA Last Admin: 04/30/20 07:25 Dose: 10 mg Documented by: Senna/Docusate Sodium (Senokot-S, Kimi-Colace) 1 tablet PO DAILY [facility] Last Admin: 05/02/20 07:49 Dose: 1 tablet Documented by: Simethicone (Mylicon) 80 mg PO [facility] PRN PRN Reason: Indigestion/stomach pain Sodium Chloride () 5 - 15 ml IV UD PRN PRN Reason: SALINE FLUSH Last Admin: 05/01/20 22:50 Dose: 10 ml Documented by: STROKE Vital Signs/Narrative: Vital Signs Temp Pulse Resp BP 05/02/20 07:52 36.8 C 88 16 131/90 H Medical Necessity - Tobacco Use Smoking Status: Never smoker Tobacco Use: Non-smoker Assessment/Plan All Active Problems 38 weeks gestation of (Acute) History of section (Acute) Preeclampsia (Acute) 1. hypokalemia * resolved * suspect due to , IVF and surgery * no need for follow up after discharge 2. hypomagnesemia * replaced 04/30 3. S/P section * mgmt per primary service. 4. Acute blood loss anemia * normocytic * monitor Medically stable for discharge. Will follow while hospitalized. Inpatient E&M: 16281 Subs Hosp L1
[2020-05-02 14:15] VITALS: BP 143/83; PULSE 67; RESP 16; TEMP 37.2; O2SAT 97
[2020-05-02 15:00] VITALS: BP 137/83
== END 2020-05-02 16:00 | disposition home or self-care (01) | DRG 788 ==
LOC: WPOUT 20:39 → WP 20:39
PROVIDERS: Admitting Provider Obstetrics & Gynecology
DX: O14.04 Mild to moderate pre-eclampsia, complicating childbirth (principal); O09.523 Supervision of elderly multigravida, third trimester; O69.81X0 Labor and delivery complicated by cord around neck, without compression, not applicable or unspecified; O34.211 Maternal care for low transverse scar from previous cesarean delivery; O99.285 Endocrine, nutritional and metabolic diseases complicating the puerperium; E87.6 Hypokalemia; E83.42 Hypomagnesemia; O90.81 Anemia of the puerperium; Z3A.38 38 weeks gestation of pregnancy; Z37.0 Single live birth
CPT/HCPCS: 59025; 80048; 80053; 80307; 82565; 82570; 83735; 84100; 84132; 84156; 84450; 84460; 84550; 85025; 85027; 85610; 85730; 86592; 86703; 86762; 86803; 86850; 86900; 86901; 86920; 86922; 87081; 87340; 87491; 87591; 87635; 87653; 93005; 99218; 99251; G2023; J7120; P9016; A4216; G0378; G0463; J2405; U0003

== ENCOUNTER 2020-05-03 11:48 | Inpatient (IN) | payer BC, MEDICAID, SELFPAY ==
[2020-04-29 18:50] VITALS: BMI 40.6
[2020-05-03] VITALS (10 sets, daily range): BP systolic 133–159; BP diastolic 91–101; PULSE 78–114; RESP 18–24; TEMP 36.6–36.9; O2SAT 87–98; BMI 40.1; BMI 38.8; BMI 38.9
--- NOTE | 2020-05-03 12:01 | RAD_ITS ---
STUDY: X-RAY CHEST REASON FOR EXAM: Female, 24 years old. Emergency 4 days ago. Coughing up mucus yesterday and coughed up some blood this morning. TECHNIQUE: AP portable upright chest COMPARISON: None. FINDINGS: There are hazy, partially confluent infiltrates in the right perihilar and right lower lung, minimal left perihilar, without dense focal consolidation, without effusion or pneumothorax. Normal cardiomediastinal silhouette. No acute osseous or upper abdominal process. RAD/Chest 1 View (Portable) IMPRESSION: Right greater than left mid to lower lung infiltrates, consistent with pneumonia. No dense focal consolidation. Electronically Signed: Shukri Lowery MD at 12:23 EDT Tel , Service support ,
--- NOTE | 2020-05-03 12:02 | EKG12_ITS ---
Test Reason : CP Blood Pressure : / mmHG Vent. Rate : 094 BPM Atrial Rate : 094 BPM P-R Int : 170 ms QRS Dur : 074 ms QT Int : 362 ms P-R-T Axes : 066 025 058 degrees QTc Int : 452 ms Normal sinus rhythm Normal ECG Confirmed by BERNIE SANCHEZ, MILLIE ([id number]), design editor JASSON JASON ([id number]) on 05/06/2020 1:08:12 PM Referred By: Confirmed By:MILLIE GIBBS MD
--- NOTE | 2020-05-03 12:10 | ED.VIS.GEN ---
History of Present Illness Chief Complaint: Shortness of Breath Informant: Patient Narrative: Patient status post repeat (postop day 4) on Monday by Dr. Bettencourt. She was seeing Dr. Hernandez in [facility] for this . She presented to OB triage with complaint of headache, visual changes, and elevated blood pressure and was found to have preeclampsia. Her postoperative recovery was complicated by hypokalemia and hypomagnesemia. She also required a blood transfusion of 1 unit. She states that yesterday she was discharged home. Baby girl is doing well. She developed a mild cough and states that there was some blood that she would cough up. She states that last night she could not lay flat due to increased shortness of breath. When she woke today she was significantly more short of breath. The cough continues. She denies any fevers. She notes lower extremity swelling that is not different than before delivery. She is currently taking labetalol but did not take today's dose. She was COVID tested on the day of her and was negative. She denies any fevers or chills. Past Medical History - Allergies and Home Meds Allergies/Adverse Reactions: Allergies No Known Allergies Allergy (Verified 05/03/20 11:54) Primary Care Physician: Care Physician,No Primary [Primary Care Provider] - Surgical History: - - section Smoking Status: Never smoker - Family History Paternal Family History: Reports: Heart Disease Review of Systems General: Denies: Chills, Fever, Sweats Eyes: Denies: Visual changes - bilaterally, Diplopia ENT: Denies: Rhinorrhea, Sore throat Cardiovascular: Denies: Chest pain, Palpitations Respiratory: Reports: Dyspnea, Cough, Dyspnea on exertion Gastrointestinal: Denies: Abdominal pain, Nausea, Vomiting, Diarrhea, Melena, Hematochezia Genitourinary: Denies: Dysuria, Hematuria, Frequency Musculoskeletal: Denies: Back pain, Extremity Pain Skin: Denies: Rash, Wounds Neurological: Denies: Headache, Weakness, Numbness Physical Exam Vital Signs/Narrative: Vital Signs Temp Pulse Resp BP Pulse Ox 05/03/20 11:50 97.8 F 114 H 24 H 133/98 H 87 Inital Vital Signs reviewed: Yes General: Well nourished, Well developed, No Acute Distress Head: Normocephalic, Atraumatic Eyes: Perrl, EOMI ENT: Moist mucous membranes, No rhinorrhea Neck: Supple, Nontender Cardiovascular: Regular rate, No murmurs, Tachycardia Respiratory: Chest nontender, - - Patient is dyspnic at rest. Abdomen: Soft, Nontender, Nondistended, Normal bowel sounds Back: Nontender, Normal Inspection Extremities: Nontender, Edema - bilateral symetric Skin: Normal color, No rash, - - no petechiae noticed Neurological: Alert, Oriented x3, Cranial nerves II-XII grossly intact, Normal Strength, Normal Sensation Psychological: Normal affect, Normal Mood Diagnostic/Tx/Re-eval Clinical Impression(s) from Imaging Studies Chest X-Ray 05/03/20 12:01 IMPRESSION: Right greater than left mid to lower lung infiltrates, consistent with pneumonia. No dense focal consolidation. Electronically Signed: Shukri Lowery MD at 12:23 EDT Tel , Service support , Chest CTA 05/03/20 12:26 IMPRESSION: No demonstrated pulmonary embolism or arterial dissection. Extensive patchy pulmonary infiltrates bilaterally. Focal right basilar consolidation medially. Mild pleural effusions bilaterally. Electronically Signed: Kade Naidu DO at 14:11 EDT Tel [phone], Service support , Laboratory Last Values WBC 8.3 K/mm3 (4.4-11.0) 05/03/20 12:05 RBC 3.64 M/mm3 (4.2-5.4) L 05/03/20 12:05 Hgb 9.1 g/dL (12.0-15.0) L 05/03/20 12:05 Hct 31.1 % (37-47) L 05/03/20 12:05 MCV 85.4 fL (81-99) 05/03/20 12:05 MCH 25.0 pg (27.0-32.0) L 05/03/20 12:05 MCHC 29.3 g/dL (32-36) L 05/03/20 12:05 RDW Std Deviation 67.6 fl (35.1-43.9) H 05/03/20 12:05 RDW Coeff of Dejah 22.5 % (11.6-14.6) H 05/03/20 12:05 Plt Count 261 K/mm3 (150-450) 05/03/20 12:05 MPV 10.4 fl (6.2-12.0) 05/03/20 12:05 Immature Gran % (Auto) 0.600 % (0.0-0.9) 05/03/20 12:05 Neut % (Auto) 76.5 % (47-70) H 05/03/20 12:05 Lymph % (Auto) 13.9 % (19-41) L 05/03/20 12:05 [place] % (Auto) 4.6 % (0-10) 05/03/20 12:05 Eos % (Auto) 3.9 % (0-5) 05/03/20 12:05 Baso % (Auto) 0.5 % (0-1) 05/03/20 12:05 Absolute Neuts (auto) 6.3 X10^3/uL (2.0-7.7) 05/03/20 12:05 Absolute Lymphs (auto) 1.15 X10^3/uL (0.83-4.51) 05/03/20 12:05 Nucleated RBC % 0 % (0-5) 05/03/20 12:05 Anisocytosis 2+ 05/03/20 12:05 PT 12.3 SECONDS (11.7-14.9) 05/03/20 12:05 INR 1.0 05/03/20 12:05 APTT 37.1 Seconds (24.1-36.2) H 05/03/20 12:05 Sodium 142 mmol/L (136-145) 05/03/20 12:05 Potassium 3.2 mmol/L (3.5-5.1) L 05/03/20 12:05 Chloride 108 mmol/L (98-107) H 05/03/20 12:05 Carbon Dioxide 27.0 mmol/L (21.0-32.0) 05/03/20 12:05 Anion Gap 7 (5-15) 05/03/20 12:05 BUN 8 mg/dL (7-18) 05/03/20 12:05 Creatinine 0.56 mg/dL (0.55-1.02) 05/03/20 12:05 Estim Creat Clear Calc 134.92 ml/min 05/03/20 12:05 Est GFR (MDRD) Af Amer 170 mL/min (>60) 05/03/20 12:05 Est GFR (MDRD) Non-Af 141 mL/min (>60) 05/03/20 12:05 BUN/Creatinine Ratio 14.2 RATIO (10-20) 05/03/20 12:05 Glucose 82 mg/dL (74-106) 05/03/20 12:05 Lactic Acid 1.2 mmol/L (0.4-1.9) 05/03/20 12:05 Calcium 8.6 mg/dL (8.5-10.1) 05/03/20 12:05 Magnesium 1.7 mg/dL (1.6-2.6) 05/03/20 12:05 Total Bilirubin 0.50 mg/dL (0.20-1.00) 05/03/20 12:05 Direct Bilirubin 0.13 mg/dL (0.00-0.30) 05/03/20 12:05 AST 34 U/L (15-37) 05/03/20 12:05 ALT 23 U/L (13-56) 05/03/20 12:05 Alkaline Phosphatase 117 U/L (45-117) 05/03/20 12:05 Troponin I < 0.015 ng/mL (<0.045) 05/03/20 12:05 B-Natriuretic Peptide 490.5 pg/mL (0-100) H 05/03/20 12:05 Total Protein 6.4 g/dL (6.4-8.2) 05/03/20 12:05 Albumin 2.5 g/dL (3.2-5.0) L 05/03/20 12:05 Globulin 3.9 g/dL (2.2-4.2) 05/03/20 12:05 Lipase 56 U/L (73-393) L 05/03/20 12:05 Urine Color [place] (Yellow) 05/03/20 13:40 Urine Clarity Sl. Cloudy (Clear) 05/03/20 13:40 Urine pH 8.0 (5.0 - 8.0) 05/03/20 13:40 Ur Specific [place] 1.010 (1.002-1.030) 05/03/20 13:40 Urine Protein 100 mg/dl (Negative) H 05/03/20 13:40 Urine Glucose (UA) Normal mg/dl (Normal) 05/03/20 13:40 Urine Ketones Negative mg/dl (Negative) 05/03/20 13:40 Urine Occult Blood 250 /ul (Negative) H 05/03/20 13:40 Urine Nitrite Negative (Negative) 05/03/20 13:40 Urine Bilirubin Negative mg/dL (Negative) 05/03/20 13:40 Urine Urobilinogen Normal mg/dl (Normal) 05/03/20 13:40 Ur Leukocyte Esterase 500 /ul (Negative) H 05/03/20 13:40 Urine RBC > 100 SEEN /hpf (0-5) 05/03/20 13:40 Urine WBC 5-10 SEEN /hpf (0-5) 05/03/20 13:40 Ur Squamous Epith Cells 5-10 SEEN /hpf (5-10) 05/03/20 13:40 Urine Bacteria 0 SEEN /hpf (None Seen) 05/03/20 13:40 Urine Mucus 0 SEEN /hpf (<or=2+) 05/03/20 13:40 COVID-19 (ARLEEN) Negative (Not Detect) 05/03/20 12:38 - EKG Initial EKG Interpretation: Sinus Rhythm - EKG demonstrates a normal sinus rhythm at a rate of 94. There are no concerning features of ACS. No ectopy. - Medical Decision Making After evaluating the patient I spoke with Dr. Bettencourt at 1240. She has come to the emergency department to see the patient. Patient has no fever and a normal white blood cell count. She is coughing up blood-tinged clear fluid. Based on her history and her physical I think she has pulmonary edema rather than an acute infectious process. She received Lasix and the plan is admission into the hospital ED Disposition - Plan for ED Patient: Disposition: Acute Care Hospital [facility] Diagnosis: Pulmonary edema, Hypoxia, state, Preeclampsia Referrals: Care Physician,No Primary [Primary Care Provider] -
--- NOTE | 2020-05-03 12:26 | CT_ITS ---
STUDY: CTA CHEST REASON FOR EXAM: Female, 24 years old. S/P , SOB RADIATION DOSAGE (If Supplied By Facility): CTDIvol = ( 10.14 ) mGy, DLP = ( 373.67 ) mGycm TECHNIQUE: The examination was performed with the intravenous administration of 100 CC ISOVUE 370. Post-processing of the angiographic images was performed, with multiplanar reformation and 3D reconstruction. Individualized dose optimization techniques were used for this CT. COMPARISON: None. FINDINGS: Normal enhancement of the main pulmonary artery and right and left pulmonary arteries. Normal enhancement of the bilateral peripheral pulmonary arteries. There is no demonstrated pulmonary embolism. Normal thoracic aorta and visualized great vessels. There is no demonstrated aortic dissection. Normal heart and pericardium. Normal mediastinum. Normal hilar regions. Normal visualized trachea and bronchi. The lungs are well expanded. Patchy pulmonary infiltrates bilaterally. Focal right basilar consolidation medially. Mild pleural effusions bilaterally. Normal chest wall structures. Normal osseous structures. Normal visualized upper abdomen. CT/CTA Chest W/WO Contrast IMPRESSION: No demonstrated pulmonary embolism or arterial dissection. Extensive patchy pulmonary infiltrates bilaterally. Focal right basilar consolidation medially. Mild pleural effusions bilaterally. Electronically Signed: Kade Naidu DO at 14:11 EDT Tel [phone], Service support ,
[2020-05-03 12:34] LABS: Absolute Lymphocyte Count 1.15 X10^3/uL (0.83-4.51); Absolute Neutrophil Count 6.3 X10^3/uL (2.0-7.7); Basophil# 0.04 X10^3/uL; Basophil% 0.5 % (0-1); Eosinophil# 0.32 X10^3/uL; Eosinophils% 3.9 % (0-5); Hematocrit 31.1 % (37-47); Hemoglobin 9.1 g/dL (12.0-15.0); Lymphocyte # 1.15 X10^3/ul (4.0); Lymphocyte % 13.9 % (19-41); Mean Corp Hgb Conc 29.3 g/dL (32-36); Mean Corpuscular Volume 85.4 fL (81-99); Mean Platelet Vol. 10.4 fl (6.2-12.0); Monocyte# 0.38 X10^3/uL; Monocyte% 4.6 % (0-10); NRBC Flagged by Analyzer 0 % (0-5); Neutrophil # 6.33 X10^3/uL (2.7-7.7); Neutrophil % 76.5 % (47-70); POSITIVE MORPHOLOGY YES; Platelet Count 261 K/mm3 (150-450); RBC Distribution Width CV 22.5 % (11.6-14.6); RBC Distribution Width SD 67.6 fl (35.1-43.9); Red Blood Count 3.64 M/mm3 (4.2-5.4); White Blood Count 8.3 K/mm3 (4.4-11.0)
[2020-05-03 12:38] LABS: Differential Indicated SCAN CRITERIA MET
[2020-05-03 12:40] LABS: Prothrombin Time (Protime)PT. 12.3 SECONDS (11.7-14.9)
[2020-05-03 12:42] LABS: Lactic Acid 1.2 mmol/L (0.4-1.9)
[2020-05-03 12:45] LABS: AST(SGOT) 34 U/L (15-37); Alanine Aminotransfer ALT/SGPT 23 U/L (13-56); Albumin, Serum 2.5 g/dL (3.2-5.0); Alkaline Phosphatase 117 U/L (45-117); Anion Gap 7 (5-15); BUN 8 mg/dL (7-18); BUN/Creat Ratio 14.2 RATIO (10-20); Bilirubin, Direct 0.13 mg/dL (0.00-0.30); Calcium,Total 8.6 mg/dL (8.5-10.1); Chloride 108 mmol/L (98-107); Creatinine, Serum 0.56 mg/dL (0.55-1.02); EST Glomerular Filtration Rate 141 mL/min (>60); Est Glom Filt Rate - Afr Amer 170 mL/min (>60); Estimated Creatinine Clearance 134.92 ml/min; Globulin 3.9 g/dL (2.2-4.2); Glucose 82 mg/dL (74-106); Lipase 56 U/L (73-393); Magnesium 1.7 mg/dL (1.6-2.6); Potassium 3.2 mmol/L (3.5-5.1); Protein, Total 6.4 g/dL (6.4-8.2); Sodium Level 142 mmol/L (136-145)
[2020-05-03 12:50] LABS: Partial Thromboplast Time 37.1 Seconds (24.1-36.2)
[2020-05-03 13:07] LABS: Anisocytosis 2+
[2020-05-03 13:15] LABS: BNP,B-Type NATRIURETIC PEPTIDE 490.5 pg/mL (0-100)
--- NOTE | 2020-05-03 13:42 | CON.PCM_ITS ---
Problem List (1) state Status: Acute (2) History of section Status: Chronic (3) Preeclampsia Status: Resolved Reason for Consult Date of Consultation: 05/03/20 Reason for Consultation: History of Present Illness: The patient is a 24 year old F [] who is POD#4 s/p RLTCS for pre-eclampsia. April 29 she presented to OB triage with mild range blood pressures, headache, and an elevated protein creatinine ratio. She had a repeat section for preeclampsia. Her preeclampsia symptoms had resolved and her blood pressures remained mild range, therefore a magnesium sulfate drip was never started for seizure prophylaxis. On postop day 1 she was noted to be hypokalemic, therefore medicine was consulted for assistance in the patient's management. The hyperkalemia was thought to be due to surgery as well as fluid resuscitation. Her hemoglobin postoperatively was 7.7 and the patient had significant symptoms of anemia. She was fatigued, lightheaded, and dizzy. She was transfused 1 unit of packed red blood cells. She was also started on labetalol 100 mg p.o. twice daily for continued mild range blood pressures. She was discharged home in good condition on postoperative day 3. Overnight she developed a cough and shortness of breath, and she presented to the ER. She reports coughing up blood , orthopnea, shortness of breath, increased lower extremity edema. Past Medical History Past Medical History (Chronic Problems): Chronic Problems History of section (Chronic) Allergies No Known Allergies Allergy (Verified 05/03/20 11:54) Home Medications: Ambulatory Orders Medication Instructions Recorded Ferrous Sulfate [Iron Supplement] 325 mg PO BID 10/10/14 Vits [Prenatabs FA] 1 tab PO DAILY 04/29/20 Docusate Sodium [Colace] 100 mg PO BID PRN PRN #60 cap 05/02/20 Ibuprofen [Motrin] 600 mg PO Q6H PRN PRN #60 tab 05/02/20 Labetalol [Trandate (Beta Franco)] 100 mg PO BID #60 tab 05/02/20 Oxycodone HCl/Acetaminophen 1 tab PO Q6H PRN PRN 7 Days #20 tab 05/02/20 [Percocet 5/325] Surgical History: - - section [employer]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 Denies: Hx of blood clot Patient Problems: Active and Suspected Problems state (Acute) Pulmonary edema (Acute) Hypoxia (Acute) CHF (congestive heart failure) (Acute) - Physical Exam Vitals/I&O's: Vital Signs Temp Pulse Resp BP Pulse Ox 97.8 F 86 18 156/95 H 98 05/03/20 11:50 05/03/20 13:06 05/03/20 13:06 05/03/20 13:06 05/03/20 13:06 Oxygen Flow Rate (L/min) 2 Oxygen Delivery Method Room Air Weight: 233 lb 11.04 oz Body Mass Index (BMI) 40.1 General: Alert, No apparent distress HEENT: Atraumatic Lungs: Short of Breath, Using Accessory Muscles Abdomen: Soft, - - ATTP, FF@U, incisiond c/d/i Extremities: No Calf Tenderness, Edema Skin: No rashes Neurological: Neuro grossly intact Psych/Mental Status: Normal Affect, Appropriate Laboratory Results 05/03/20 12:05: WBC 8.3, RBC 3.64 L, Hgb 9.1 L, Hct 31.1 L, MCV 85.4, MCH 25.0 L , MCHC 29.3 L, RDW Std Deviation 67.6 H, RDW Coeff of Dejah 22.5 H, Plt Count 261, MPV 10.4, Immature Gran % (Auto) 0.600, Neut % (Auto) 76.5 H, Lymph % (Auto) 13.9 L, [place] % (Auto) 4.6, Eos % (Auto) 3.9, Baso % (Auto) 0.5, Absolute Neuts (auto) 6.3, Absolute Lymphs (auto) 1.15, Nucleated RBC % 0, Anisocytosis 2+ 05/03/20 12:05: PT 12.3, INR 1.0, APTT 37.1 H 05/03/20 12:05: Sodium 142, Potassium 3.2 L, Chloride 108 H, Carbon Dioxide 27.0, Anion Gap 7, BUN 8, Creatinine 0.56, Estim Creat Clear Calc 134.92, Est GFR (MDRD) Af Amer 170, Est GFR (MDRD) Non-Af 141, BUN/Creatinine Ratio 14.2, Glucose 82, Calcium 8.6, Magnesium 1.7, Total Bilirubin 0.50, Direct Bilirubin 0.13, AST 34, ALT 23, Alkaline Phosphatase 117, Troponin I < 0.015, Total Protein 6.4, Albumin 2.5 L, Globulin 3.9, Lipase 56 L 05/03/20 12:05: Lactic Acid 1.2 05/03/20 12:05: B-Natriuretic Peptide 490.5 H 05/03/20 12:38: COVID-19 (ARLEEN) Pending Assessment/Plan All Active Problems Preeclampsia (Resolved) state (Acute) Pulmonary edema (Acute) Hypoxia (Acute) CHF (congestive heart failure) (Acute) POD#4 s/p C/S for pre-eclampsia admitted with SOB, cough, orthopnea. - Post-op state: Incision c/d/i. Routine post-op care - : Pt is . Discussed to bring pump to hospital - Pre-eclampsia: She has no pre-e symptoms at this time. Pre-e labs reviewed. Recommend treating BP's greater than or equal to 160/110. Did not receive mag gtt for seizure prophylaxis during prior admission given pre-e without severe features - Acute blood loss anemia: S/p 1 unit of PRBC's post-op for Hgb 7.7 and symptoms of anemia - CHF: Management per medicine - Pulmonary edema: Management per medicine - Hypokalemia: Management per medicine
[2020-05-03 13:45] LABS: Probe Check PASS; Specimen Processing Control PASS
[2020-05-03 13:50] LABS: Bacteria 0 SEEN /hpf (None Seen); Mucous, Urine 0 SEEN /hpf (<or=2+)
[2020-05-03 13:51] LABS: Color, Urine Amber (Yellow); Glucose, Dipstick Normal (Normal); Ketone-Dipstick Negative (Negative); Leukocyte Esterase-Dipstick 500 /ul (Negative); Nitrite-Dipstick Negative (Negative); Occult Blood-Urine 250 /ul (Negative); Protein-Dipstick 100 mg/dl (Negative); Urine Bilirubin Dipstick Negative (Negative); Urine Clarity Sl. Cloudy (Clear); Urine Urobilinogen Normal (Normal)
[2020-05-03 13:57] LABS: Red Blood Cells-Urine > 100 SEEN /hpf (0-5); Squamous Epithelial Cells - UA 5-10 SEEN /hpf (5-10); White Blood Cells 5-10 SEEN /hpf (0-5)
--- NOTE | 2020-05-03 14:14 | ED.RN ---
PT AMBULATING TO BATHROOM. BACK TO ROOM. O2 SATURATION DECREASED TO 88%. ON O2 AT 3 LITERS. PULSE OX BACK TO 94
[2020-05-03] MEDS: Furosemide 100 MG/10 ML Vial 60 MG IV (14:31)
--- NOTE | 2020-05-03 14:56 | HP.PCM_ITS ---
Problem List (1) CHF (congestive heart failure) Status: Acute (2) Hypoxia Status: Acute (3) state Status: Acute (4) Preeclampsia Status: Resolved (5) Pulmonary edema Status: Acute (6) History of section Status: Chronic History of Present Illness Date of Admission: 05/03/20 Chief Complaint: shortness of breath The patient is a 24 year old F who underwent a section on the for preeclampsia. Child was born healthy at 38 weeks. Patient had a uncomplicated hospitalization other than issues with hypokalemia. Patient was discharged on the to home. This morning, patient was having shortness of breath while she was sleeping. Occurred while she was laying flat but also when she would be sitting up somewhat. Also had chest tightness. Patient stated that began after some coughing. She denied any fever or chills. Presented to the emergency room and had a pulse ox of 87% on room air. Patient was put on oxygen. Chest x-ray was concerning for infiltrates. Patient underwent a CT angiogram of the chest and that showed no pulmonary embolism but did show described as pulmonary infiltrates. Patient denies any sick contacts and has not had any fever nor chills. Patient was COVID negative in the emergency room. Patient did receive 60 mg of IV furosemide in the emergency room. Patient was 5.7 L positive during the course of her hospitalization. [] Past Medical History Past Medical History (Chronic Problems): Chronic Problems History of section (Chronic) Allergies No Known Allergies Allergy (Verified 05/03/20 11:54) Home Medications: Ambulatory Orders Medication Instructions Recorded Ferrous Sulfate [Iron Supplement] 325 mg PO BID 10/10/14 Vits [Prenatabs FA] 1 tab PO DAILY 04/29/20 Docusate Sodium [Colace] 100 mg PO BID PRN PRN #60 cap 05/02/20 Ibuprofen [Motrin] 600 mg PO Q6H PRN PRN #60 tab 05/02/20 Labetalol [Trandate (Beta Franco)] 100 mg PO BID #60 tab 05/02/20 Oxycodone HCl/Acetaminophen 1 tab PO Q6H PRN PRN 7 Days #20 tab 05/02/20 [Percocet 5/325] Surgical History: - - section ETL APPLICATION DEVELOPER History: No pertinent ETL APPLICATION DEVELOPER history Lives: Spouse/ Significant Other Smoking Status: Never smoker - *Family History Paternal History Items: Heart Disease Review of Systems Constitutional: Denies: Anorexia, Chills, Fever Eyes: Denies: Blurred vision, Double vision HEENT: Denies: Head Aches, Sinus Congestion, Sinus Drainage Cardiovascular: Reports: Chest Pain, Edema, Orthopnea Respiratory: Reports: Cough, Shortness of Breath Gastrointestinal: Denies: Abdominal Pain, Nausea, Vomiting Genitourinary: Denies: Dysuria Gynecological: Reports: - - Musculoskeletal: Denies: Joint Pain, Joint Tenderness Skin: Denies: Rash, Wounds Hematologic/ Lymphatic: Denies: Easy Bruising, Easy Bleeding, Hx of blood clot VTE Information - Inpt Only VTE Present on Admission: No VTE Mechan Device Prophylaxis: None VTE Pharm Prophylaxis ordered?: Yes Patient Problems: Active and Suspected Problems state (Acute) Pulmonary edema (Acute) Hypoxia (Acute) CHF (congestive heart failure) (Acute) - Physical Exam Vitals/I&O's: Vital Signs Temp Pulse Resp BP Pulse Ox 36.6 C 80 18 149/91 H 95 05/03/20 11:50 05/03/20 14:15 05/03/20 14:15 05/03/20 14:15 05/03/20 14:15 Oxygen Flow Rate (L/min) 3 Oxygen Delivery Method Nasal Cannula Weight: 106 kg Body Mass Index (BMI) 40.1 General: Alert, Cooperative, No apparent distress, - - No respiratory distress. No conversational dyspnea. HEENT: Atraumatic, Normocephalic Oral: Moist Mucosa, No Gingival or Mucosal Lesions/ Ulcerations Neck: No Nodes, Thyroid Normal Size and Texture Lungs: Wheezes, - - Bibasilar crackles. Cardiovascular: Regular rate, Regular Rhythm, Normal S1, Normal S2, No murmurs Abdomen: Bowel Sounds Present, Soft, Non Tender, Non-Distended, No Hepato- splenomegaly, Obese Extremities: No Calf Tenderness, Edema Skin: No rashes, No breakdown Psych/Mental Status: Normal Affect, Appropriate Laboratory Results 05/03/20 12:05: WBC 8.3, RBC 3.64 L, Hgb 9.1 L, Hct 31.1 L, MCV 85.4, MCH 25.0 L , MCHC 29.3 L, RDW Std Deviation 67.6 H, RDW Coeff of Dejah 22.5 H, Plt Count 261, MPV 10.4, Immature Gran % (Auto) 0.600, Neut % (Auto) 76.5 H, Lymph % (Auto) 13.9 L, [place] % (Auto) 4.6, Eos % (Auto) 3.9, Baso % (Auto) 0.5, Absolute Neuts (auto) 6.3, Absolute Lymphs (auto) 1.15, Nucleated RBC % 0, Anisocytosis 2+ 05/03/20 12:05: PT 12.3, INR 1.0, APTT 37.1 H 05/03/20 12:05: Sodium 142, Potassium 3.2 L, Chloride 108 H, Carbon Dioxide 27.0, Anion Gap 7, BUN 8, Creatinine 0.56, Estim Creat Clear Calc 134.92, Est GFR (MDRD) Af Amer 170, Est GFR (MDRD) Non-Af 141, BUN/Creatinine Ratio 14.2, Glucose 82, Calcium 8.6, Magnesium 1.7, Total Bilirubin 0.50, Direct Bilirubin 0.13, AST 34, ALT 23, Alkaline Phosphatase 117, Troponin I < 0.015, Total Protein 6.4, Albumin 2.5 L, Globulin 3.9, Lipase 56 L 05/03/20 12:05: Lactic Acid 1.2 05/03/20 12:05: B-Natriuretic Peptide 490.5 H 05/03/20 12:38: COVID-19 (ARLEEN) Negative 05/03/20 13:40: Urine Color Tata, Urine Clarity Sl. Cloudy, Urine pH 8.0, Ur Specific [place] 1.010, Urine Protein 100 H, Urine Glucose (UA) Normal, Urine Ketones Negative, Urine Occult Blood 250 H, Urine Nitrite Negative, Urine Bilirubin Negative, Urine Urobilinogen Normal, Ur Leukocyte Esterase 500 H, Urine RBC > 100 SEEN, Urine WBC 5-10 SEEN, Ur Squamous Epith Cells 5-10 SEEN, Urine Bacteria 0 SEEN, Urine Mucus 0 SEEN EKG independently reviewed and showed normal sinus rhythm with no acute changes. CT a of the chest showed bilateral small pleural effusions and pulmonary vascular congestion Chest x-ray was personally reviewed and showed pulmonary edema. Assessment/Plan All Active Problems Preeclampsia (Resolved) state (Acute) Pulmonary edema (Acute) Hypoxia (Acute) CHF (congestive heart failure) (Acute) 1. Acute congestive heart failure * Patient was 5.6 L positive from her recent admission likely with the fluid that she had received with her section and blood products. * Patient has received IV furosemide 60 mg in the emergency room. We will continue with 40 mg twice daily for now. * Check an echocardiogram * I am concern for peripartum that may have developed during her or cardiomyopathy * Check an echocardiogram 2. Hypokalemia * This is been an ongoing issue since her discharge yesterday. * Continue to replace and monitor * Magnesium was 1.4 on the and was replaced. Will recheck. 3. * Seen by Dr. Bettencourt in the ED. No acute issues pertaining to her surgery at this time. * Patient is breast-feeding and will pump while in the hospital. Patient informed that her child would not be able to come to the hospital while she wa s here. 4. Anemia * Appears stable * Patient did receive 1 unit packed red blood cells during the last admission * Monitor for now * Continue with ferrous sulfate. 5. VTE prophylaxis: Moderate risk. Low molecular weight heparin. Inpatient E&M: 49853 In Hosp L3
--- NOTE | 2020-05-03 15:51 | ECHOD_ITS ---
Reason For Study: CHF Procedure This was a 2D Doppler, Color Flow transthoracic echocardiogram. No Definity due to newly nursing . Exam performed portable in patient room. Left Ventricle Normal LV size. The estimated ejection fraction is 65 %. No evidence for diastolic dysfunction. No regional wall motion abnormalities noted. Right Ventricle Normal RV size. Normal systolic function. Atria Normal left atrium. Normal right atrium. No doppler evidence for ASD. Mitral Valve There is no mitral valve stenosis. Trivial mitral valve insufficiency. Tricuspid Valve There is no tricuspid stenosis. Unable to estimate RV systolic pressure due to inadequate jet, pulmonary artery pressure probably normal. Aortic Valve Trisinus/trileaflet aortic valve. There is no aortic stenosis. No aortic valve insufficiency. Pulmonic Valve There is no pulmonic valvular stenosis. Trivial pulmonic valve insufficiency. Great Vessels Normal aortic root. Pericardium/Pleural No pericardial effusion. MMode/2D Measurements & Calculations LVIDd: 4.7 cm IVSd: 1.1 cm LA dimension: 3.5 cm LVIDs: 3.1 cm LVPWd: 1.1 cm RVDd: 4.2 cm FS: 33.4 % LAV(MOD-bp): 53.3 ml LA A4 area: 19.2 cm2 RA A4 area: 13.8 cm2 LAV(MOD-bp) Indexed: 25.5 ml/m2 LAV(MOD-sp2): 44.4 ml LAV(MOD-sp4): 51.1 ml Time Measurements MV dec time: 0.18 sec Doppler Measurements & Calculations MV E max francisco: 116.0 cm/sec Lat Peak E' Francisco: 17.3 cm/sec Med Peak E' Francisco: 8.7 cm/sec MV A max francisco: 95.0 cm/sec E/E' lat: 6.7 E/E' med: 13.3 MV E/A: 1.2 MV V2 max: 149.3 cm/sec MV P1/2t max francisco: 151.2 cm/sec Ao V2 max: 145.5 cm/sec MV max P.9 mmHg MV P1/2t: 69.2 msec Ao max P.5 mmHg MV V2 mean: 80.3 cm/sec MV dec slope: 640.4 cm/sec2 MV mean P.2 mmHg MVA(P1/2t): 3.2 cm2 MV V2 VTI: 37.7 cm LV V1 max: 126.3 cm/sec PA V2 max: 120.4 cm/sec LV V1 max P.4 mmHg Interpretation Summary The estimated ejection fraction is 65 %. No evidence for diastolic dysfunction. Trivial mitral valve insufficiency. Ordering Physician: Danie Apodaca Referring Physician: No PCP Performed By: Wilfrid Ovalle RCS
--- NOTE | 2020-05-03 16:33 | NURSING ---
Spoke with [facility] big machine consultant educational audiologist (Arabella Price) and reviewed all ordered medications. She does not have concern with any of the current medications ordered and instructed this RN that all pumped breast milk could be saved for the baby. She advised us to call with additional questions or concerns. Updated pt on this and let her know [facility] would have storage and additional containers available if needed. Pt verbalizes understanding.
[2020-05-03] MEDS: Docusate Sodium 100 MG Capsule PO (17:40)
[2020-05-03] MEDS: oxyCODONE 5 MG Tablet PO (17:40)
[2020-05-03] MEDS: Ferrous Sulfate 325 MG Tablet PO (17:40)
[2020-05-03] MEDS: Furosemide 40 MG/4 ML Vial IV (17:41)
--- NOTE | 2020-05-03 18:55 | PCM.CONS.C ---
Reason for Consult Date of Consultation: 05/03/20 Reason for Consultation: Suspected cardiomyopathy History of Present Illness: The patient is a 24 year old F who underwent a section on the for preeclampsia. Child was born healthy at 38 weeks. Patient had a uncomplicated hospitalization other than issues with hypokalemia. Patient was discharged on the to home. This morning, patient was having shortness of breath while she was sleeping. Occurred while she was laying flat but also when she would be sitting up somewhat. Also had chest tightness. Patient stated that began after some coughing. She denied any fever or chills. Presented to the emergency room and had a pulse ox of 87% on room air. Patient was put on oxygen. Chest x-ray was concerning for infiltrates. Patient underwent a CT angiogram of the chest and that showed no pulmonary embolism but did show described as pulmonary infiltrates. Patient denies any sick contacts and has not had any fever nor chills. Patient was COVID negative in the emergency room. Patient did receive 60 mg of IV furosemide in the emergency room. Patient was 5.7 L positive during the course of her hospitalization. Patient responded well to IV Lasix and is doing much better now. Review of systems: All systems reviewed. All else is negative except in HPI. Past Medical History Allergies/Adverse Reactions: Allergies No Known Allergies Allergy (Verified 05/03/20 11:54) Home Medications: Ambulatory Orders Medication Instructions Recorded Ferrous Sulfate [Iron Supplement] 325 mg PO BID 10/10/14 Vits [Prenatabs FA] 1 tab PO DAILY 04/29/20 Docusate Sodium [Colace] 100 mg PO BID PRN PRN #60 cap 05/02/20 Ibuprofen [Motrin] 600 mg PO Q6H PRN PRN #60 tab 05/02/20 Labetalol [Trandate (Beta Franco)] 100 mg PO BID #60 tab 05/02/20 Oxycodone HCl/Acetaminophen 1 tab PO Q6H PRN PRN 7 Days #20 tab 05/02/20 [Percocet 5/325] Past Medical History (Chronic Problems): Chronic Problems History of section (Chronic) Surgical History: - - section EQUIPMENT APPLICATION SPECIALIST History: No pertinent EQUIPMENT APPLICATION SPECIALIST history - *Family History Paternal History Items: Heart Disease Lives: Spouse/ Significant Other Smoking Status: Never smoker Objective: Vital Signs Temp Pulse Resp BP Pulse Ox 98.5 F 78 18 156/101 H 92 05/03/20 16:43 05/03/20 16:43 05/03/20 16:43 05/03/20 16:43 05/03/20 16:43 Oxygen Flow Rate (L/min) 2 Oxygen Delivery Method Nasal Cannula Weight: 226 lb 6.636 oz Body Mass Index (BMI) 38.8 Intake and Output for Last 24 Hours 05/01/20 05/02/20 05/03/20 23:59 23:59 23:59 Intake Total 420 / 420 Output Total 5200 / 5200 Balance -4780 / -4780 General: Awake, Alert, Oriented x 3 HEENT: Atraumatic Oral: Moist Mucosa Neck: Supple Lungs: Clear to auscultation Cardiovascular: Regular Rhythm Abdomen: Soft Extremities: No edema Skin: No Rashes Psych/Mental Status: Appropriate 05/03/20 12:05: WBC 8.3, RBC 3.64 L, Hgb 9.1 L, Hct 31.1 L, MCV 85.4, MCH 25.0 L, MCHC 29.3 L, Plt Count 261, MPV 10.4, Immature Gran % (Auto) 0.600, Neut % (Auto) 76.5 H, Lymph % (Auto) 13.9 L, [place] % (Auto) 4.6, Eos % (Auto) 3.9, Baso % (Auto) 0.5, Absolute Neuts (auto) 6.3, Nucleated RBC % 0 05/03/20 12:05: PT 12.3, INR 1.0, APTT 37.1 H 05/03/20 12:05: Sodium 142, Potassium 3.2 L, Chloride 108 H, Carbon Dioxide 27.0, Anion Gap 7, BUN 8, Creatinine 0.56, Est GFR (MDRD) Af Amer 170, Est GFR (MDRD) Non-Af 141, BUN/Creatinine Ratio 14.2, Glucose 82, Calcium 8.6, Magnesium 1.7, Total Bilirubin 0.50, Direct Bilirubin 0.13, Troponin I < 0.015 05/03/20 12:05: Lactic Acid 1.2 05/03/20 12:05: B-Natriuretic Peptide 490.5 H 05/03/20 13:40: Urine Color [place], Urine Clarity Sl. Cloudy, Urine pH 8.0, Ur Specific [place] 1.010, Urine Protein 100 H, Urine Glucose (UA) Normal, Urine Ketones Negative, Urine Occult Blood 250 H, Urine Nitrite Negative, Urine Bilirubin Negative, Urine Urobilinogen Normal, Ur Leukocyte Esterase 500 H, Urine RBC > 100 SEEN, Urine WBC 5-10 SEEN 05/03/20 16:15: Troponin I < 0.015 Rhythm: EKG: ECHO: Stress Test: Cardiac Cath: PCI: CT Surgery: Holter monitor: EPS: PPM: CXR: Chest CT Scan: Assessment/Plan 1. Shortness of breath: cardiomyopathy is definitely in the differential. Agree with getting a 2D echo. Patient is improved with current medications. She does have orthopnea still. Reasonable to continue IV Lasix overnight and reevaluate tomorrow. Spontaneous coronary artery dissection was also considered in the differential. However patient's cardiac enzymes have remained negative and her chest tightness has responded well to Lasix.
[2020-05-03] MEDS: Labetalol 100 MG Tablet PO (21:12)
[2020-05-04] MEDS: oxyCODONE 5 MG Tablet PO ×2 (00:06→08:18)
--- NOTE | 2020-05-04 00:20 | NURSING ---
This nurse received handoff report from Kiya Powers at this time as this nurse will take over care of this patient.
[2020-05-04 03:08] VITALS: BP 166/87; PULSE 78; RESP 18; TEMP 36.8; O2SAT 95
[2020-05-04 03:16] VITALS: PULSE 90
[2020-05-04 05:59] LABS: Absolute Lymphocyte Count 1.52 X10^3/uL (0.83-4.51); Absolute Neutrophil Count 5.3 X10^3/uL (2.0-7.7); Basophil# 0.03 X10^3/uL; Basophil% 0.4 % (0-1); Eosinophil# 0.35 X10^3/uL; Eosinophils% 4.4 % (0-5); Hematocrit 30.2 % (37-47); Hemoglobin 8.8 g/dL (12.0-15.0); Lymphocyte # 1.52 X10^3/ul (4.0); Lymphocyte % 19.2 % (19-41); Mean Corp Hgb Conc 29.1 g/dL (32-36); Mean Corpuscular Hgb 24.8 pg (27.0-32.0); Mean Corpuscular Volume 85.1 fL (81-99); Mean Platelet Vol. 9.6 fl (6.2-12.0); Monocyte# 0.63 X10^3/uL; NRBC Flagged by Analyzer 0 % (0-5); Neutrophil # 5.32 X10^3/uL (2.7-7.7); Neutrophil % 67.4 % (47-70); POSITIVE MORPHOLOGY YES; Platelet Count 257 K/mm3 (150-450); RBC Distribution Width SD 68.5 fl (35.1-43.9); Red Blood Count 3.55 M/mm3 (4.2-5.4); White Blood Count 7.9 K/mm3 (4.4-11.0)
[2020-05-04 06:01] LABS: Differential Indicated SCAN CRITERIA MET
[2020-05-04 06:23] LABS: Anion Gap 9 (5-15); BUN 9 mg/dL (7-18); Calcium,Total 8.5 mg/dL (8.5-10.1); Chloride 105 mmol/L (98-107); Creatinine, Serum 0.53 mg/dL (0.55-1.02); EST Glomerular Filtration Rate 151 mL/min (>60); Est Glom Filt Rate - Afr Amer 183 mL/min (>60); Estimated Creatinine Clearance 142.56 ml/min; Glucose 78 mg/dL (74-106); Magnesium 1.8 mg/dL (1.6-2.6); Potassium 3.2 mmol/L (3.5-5.1); Sodium Level 141 mmol/L (136-145)
[2020-05-04 06:27] LABS: Anisocytosis RARE; Differential Comment SCANNED; Hypochromasia RARE; Microcytosis RARE; Polychromasia RARE
[2020-05-04 06:41] VITALS: PULSE 71
[2020-05-04 08:16] VITALS: BP 151/97; PULSE 76; RESP 16; TEMP 36.8; O2SAT 94
[2020-05-04] MEDS: Labetalol 100 MG Tablet PO ×2 (08:18→12:32)
[2020-05-04] MEDS: Furosemide 40 MG/4 ML Vial IV (08:18)
[2020-05-04] MEDS: Prenatal Vits Tablet 1 TABLET PO (08:18)
[2020-05-04] MEDS: 0.9% Saline Lock 10 ML Syringe IV (08:19)
--- NOTE | 2020-05-04 09:04 | PCM.PN.OB ---
Patient Problems: Active and Suspected Problems state (Acute) Pulmonary edema (Acute) Hypoxia (Acute) CHF (congestive heart failure) (Acute) Preeclampsia (Acute) Subjective: Patient doing well. She feels improved this morning. She does not feel as short of breath anymore, and her cough is improved. She is pumping. Lochia is normal. Her pain is controlled. - Physical Exam Vitals/I&O's: Vital Signs Temp Pulse Resp BP Pulse Ox 98.3 F 76 16 151/97 H 94 05/04/20 08:16 05/04/20 08:16 05/04/20 08:16 05/04/20 08:16 05/04/20 08:16 Oxygen Flow Rate (L/min) 2 Oxygen Delivery Method Room Air Weight: 221 lb 5.506 oz Body Mass Index (BMI) 38.8 Intake and Output for Last 24 Hours 05/02/20 05/03/20 05/04/20 23:59 23:59 23:59 Intake Total 900 / 900 150 / 150 Output Total 6400 / 6400 100 / 100 Balance -5500 / -5500 50 / 50 General: Alert, No apparent distress HEENT: Atraumatic Abdomen: Non-Distended Extremities: Edema Skin: No rashes Neurological: Neuro grossly intact Psych/Mental Status: Normal Affect, Appropriate Laboratory Results 05/03/20 12:05: WBC 8.3, RBC 3.64 L, Hgb 9.1 L, Hct 31.1 L, MCV 85.4, MCH 25.0 L, MCHC 29.3 L, RDW Std Deviation 67.6 H, RDW Coeff of Dejah 22.5 H, Plt Count 261, MPV 10.4, Immature Gran % (Auto) 0.600, Neut % (Auto) 76.5 H, Lymph % (Auto) 13.9 L, [place] % (Auto) 4.6, Eos % (Auto) 3.9, Baso % (Auto) 0.5, Absolute Neuts (auto) 6.3, Absolute Lymphs (auto) 1.15, Nucleated RBC % 0, Anisocytosis 2+ 05/03/20 12:05: PT 12.3, INR 1.0, APTT 37.1 H 05/03/20 12:05: Sodium 142, Potassium 3.2 L, Chloride 108 H, Carbon Dioxide 27.0, Anion Gap 7, BUN 8, Creatinine 0.56, Estim Creat Clear Calc 134.92, Est GFR (MDRD) Af Amer 170, Est GFR (MDRD) Non-Af 141, BUN/Creatinine Ratio 14.2, Glucose 82, Calcium 8.6, Magnesium 1.7, Total Bilirubin 0.50, Direct Bilirubin 0.13, AST 34, ALT 23, Alkaline Phosphatase 117, Troponin I < 0.015, Total Protein 6.4, Albumin 2.5 L, Globulin 3.9, Lipase 56 L 05/03/20 12:05: Lactic Acid 1.2 05/03/20 12:05: B-Natriuretic Peptide 490.5 H 05/03/20 12:38: COVID-19 (ARLEEN) Negative 05/03/20 13:40: Urine Color [place]ata, Urine Clarity Sl. Cloudy, Urine pH 8.0, Ur Specific [place] 1.010, Urine Protein 100 H, Urine Glucose (UA) Normal, Urine Ketones Negative, Urine Occult Blood 250 H, Urine Nitrite Negative, Urine Bilirubin Negative, Urine Urobilinogen Normal, Ur Leukocyte Esterase 500 H, Urine RBC > 100 SEEN, Urine WBC 5-10 SEEN, Ur Squamous Epith Cells 5-10 SEEN, Urine Bacteria 0 SEEN, Urine Mucus 0 SEEN 05/03/20 16:15: Troponin I < 0.015 05/03/20 18:35: Troponin I < 0.015 05/04/20 05:34: Sodium 141, Potassium 3.2 L, Chloride 105, Carbon Dioxide 27.0, Anion Gap 9, BUN 9, Creatinine 0.53 L, Estim Creat Clear Calc 142.56, Est GFR (MDRD) Af Amer 183, Est GFR (MDRD) Non-Af 151, BUN/Creatinine Ratio 17.0, Glucose 78, Calcium 8.5, Magnesium 1.8 05/04/20 05:34: WBC 7.9, RBC 3.55 L, Hgb 8.8 L, Hct 30.2 L, MCV 85.1, MCH 24.8 L, MCHC 29.1 L, RDW Std Deviation 68.5 H, RDW Coeff of Dejah 23.0 H, Plt Count 257, MPV 9.6, Immature Gran % (Auto) 0.600, Neut % (Auto) 67.4, Lymph % (Auto) 19.2, [place] % (Auto) 8.0, Eos % (Auto) 4.4, Baso % (Auto) 0.4, Absolute Neuts (auto) 5.3, Absolute Lymphs (auto) 1.52, Nucleated RBC % 0, Differential Comment SCANNED, Polychromasia RARE, Hypochromasia RARE, Anisocytosis RARE, Microcytosis RARE Current Medications Dextrose (D50w Syringe) 0 gm IV X1 PRN; Protocol PRN Reason: Hypoglycemia Docusate Sodium (Colace) 100 mg PO BID PRN PRN PRN Reason: CONSTIPATION Last Admin: 05/03/20 17:40 Dose: 100 mg Documented by: Enoxaparin Sodium (Lovenox) 40 mg SC DAILY [facility] Last Admin: 05/04/20 08:37 Dose: Not Given Documented by: Ferrous Sulfate (Ferrous Sulfate) 325 mg PO 1200,1700 [facility] Last Admin: 05/03/20 17:40 Dose: 325 mg Documented by: Furosemide (Lasix) 40 mg IV BID@1000,1800 [facility] Last Admin: 05/04/20 08:18 Dose: 40 mg Documented by: Glucagon () 1 mg IM .X1 PRN PRN Reason: Hypoglycemia Labetalol HCl (Trandate) 100 mg PO BID [facility] Last Admin: 05/04/20 08:18 Dose: 100 mg Documented by: Ondansetron HCl (Zofran) 4 mg IV Q8H PRN PRN PRN Reason: NAUSEA/VOMITING Oxycodone HCl (Oxyir) 5 mg PO Q6H PRN PRN PRN Reason: Pain Score 6-10/10 Last Admin: 05/04/20 08:18 Dose: 5 mg Documented by: Potassium Chloride (K-Dur) [facility] Last Admin: 05/04/20 08:18 Dose: 40 meq Documented by: Multivit/Folic Acid/Iron (Prenatabs Fa) [facility] tablet [facility] Last Admin: 05/04/20 08:18 Dose: 1 tablet Documented by: Sodium Chloride () 10 - 40 ml IV UD PRN PRN Reason: SALINE FLUSH Last Admin: 05/04/20 08:19 Dose: 10 ml Documented by: Medical Necessity - Tobacco Use Smoking Status: Never smoker Assessment/Plan All Active Problems Preeclampsia (Resolved) state (Acute) Pulmonary edema (Acute) Hypoxia (Acute) CHF (congestive heart failure) (Acute) Preeclampsia (Acute) Post-op state s/p C/S: Routine post-op care. Percocet, motrin, tylenol PRN pain Pre-eclampsia: Continue to monitor for NELSON or vision changes. BP elevated. On Labetalol 100 mg BID that was started immediately post-op. Would like to increase her Labetalol from an OB perspective, but will wait for Echo and cardio recs : Pumping. Will have see today CHF: Management per primary Discussed with Dr. Lerbon who is clinical transformation specialist for the group today.
--- NOTE | 2020-05-04 11:24 | CASEMGMT ---
Readmission chart review: Pt initially admitted to [facility] for d/t preeclampsia 04/29-05/02/2020 and hospitalist, Dr. Apodaca, was consulted on 04/30/2020 for hypokalemia s/p for preeclampsia and magnesium was to also be checked. Pt's magnesium was also low and replaced at that time. Pt discharged home 05/02/2020 and stated was feeling much better. Pt was placed on labetalol 100mg po bid at discharge and was to f/u in a week for bp check and incision check. Pt then returned to [facility] ED on the morning of 05/03 with increase SOB, CP/soreness and 'coughing up blood.' Pt c/o inability to lie flat. Pt diagnosed with pulm edema and given 60mg lasix in the ED which she stated made her feel better. Per H&P, pt did have 5.7liters fluid during 1st admission. CTA chest showed extensive patchy infiltrates bilaterally and focal right basilar consolidation medially. Pt denies fever/chills and COVID was negative. Pt's potassium is still low at this time and will continue to be monitored and replaced. Awaiting ECHO results. CM to follow for any further discharge planning/needs. SStsofi MUIR CM
--- NOTE | 2020-05-04 11:39 | PCM.DC ---
- Discharge Diagnoses Current Active Problems: Current Active and Chronic Problems state (Acute) Pulmonary edema (Acute) Hypoxia (Acute) CHF (congestive heart failure) (Acute) Preeclampsia (Acute) You will use the following diet at home:: Cardiac Your food should be the consistency of: Regular Your liquids should be the consistency of: Regular/Thin Discharge Activity: Return to Normal Activity Additional Instructions: You will need a CBC and BMP (labs) this week. Call your PCP or OBGYN to arrange this. Allergies/Adverse Reactions: Allergies No Known Allergies Allergy (Verified 05/03/20 11:54) Medications to take at Discharge Ferrous Sulfate [Iron Supplement] 325 mg PO BID 10/10/14 Vits [Prenatabs FA ] 1 tab PO DAILY 04/29/20 Docusate Sodium [Colace] 100 mg PO BID PRN PRN #60 cap 05/02/20 Oxycodone HCl/Acetaminophen [Percocet 5-325] 1 tab PO Q6H PRN PRN 7 Days #20 tab 05/02/20 Furosemide [Lasix] 20 mg PO DAILY PRN PRN #30 tab 05/04/20 Labetalol [Trandate (Beta Franco)] 200 mg PO BID #60 tab 05/04/20 The following prescriptions were given: Furosemide [Lasix] 20 mg PO DAILY PRN PRN #30 tab PRN Reason: edema Transmission Status: Pending to [facility] Labetalol [Trandate (Beta Franco)] 200 mg PO BID #60 tab Transmission Status: Pending to [facility] Primary Care Physician: Care Physician,No Primary [Primary Care Provider] - Please follow up with your Primary Care Physician in: 1-2 weeks Test Results: Test results from this visit will be discussed in further detail at your follow-up appointment, if applicable. Please Follow Up With: Annie Mcconnell MD When: 1-2 weeks Please Follow Up With: Breanna Bettencourt DO When: As directed Proposed Discharge Date: 05/04/20
--- NOTE | 2020-05-04 12:13 | PHA.DC.MC ---
Pharmacy Service has performed discharge medication reconciliation and counseling for this patient. 1. FUROSEMIDE 20MG PO DAILY PRN EDEMA 2. LABETALOL 200MG PO BID The patient's discharge medication list was reviewed for discrepancies and discrepancies were resolved. Home Medications Ferrous Sulfate [Iron Supplement] 325 mg PO BID 10/10/14 Vits [Prenatabs FA ] 1 tab PO DAILY 04/29/20 Docusate Sodium [Colace] 100 mg PO BID PRN PRN #60 cap 05/02/20 Oxycodone HCl/Acetaminophen [Percocet 5-325] 1 tab PO Q6H PRN PRN 7 Days #20 tab 05/02/20 Furosemide [Lasix] 20 mg PO DAILY PRN PRN #30 tab 05/04/20 Labetalol [Trandate (Beta Franco)] 200 mg PO BID #60 tab 05/04/20 The patient was counseled on the following discharge medications and changes in medications for homegoing were reviewed. The Reason for Use, instructions for use, and potential side effects were reviewed for all new medications. The patient's questions regarding all of their medications were answered. The patient was able to verbally demonstrate an understanding of their discharge medications.
[2020-05-04 12:22] VITALS: BP 138/87; PULSE 84; RESP 18; TEMP 36.8; O2SAT 96
[2020-05-04 12:24] VITALS: O2SAT 96; O2SAT 97
--- NOTE | 2020-05-04 14:26 | PCM.DC.SUM ---
Discharge Date and Diagnosis Date of Admission: 05/03/20 Date of Discharge: 05/04/20 - Primary Discharge Diagnosis Acute Problems: Acute diastolic CHF mediated by preeclampsia and uncontrolled hypertension Post partem 4 days, post C section Preeclampsia Obesity Hypokalemia Hypomagnesemia - Secondary Discharge Diagnosis Chronic Problems: Chronic Problems History of section (Chronic) Hospital Course and Treatment Imaging Results: IMAGING: RAD/Chest 1 View (Portable) IMPRESSION: Right greater than left mid to lower lung infiltrates, consistent with pneumonia. No dense focal consolidation. CT/CTA Chest W/WO Contrast IMPRESSION: No demonstrated pulmonary embolism or arterial dissection. Extensive patchy pulmonary infiltrates bilaterally. Focal right basilar consolidation medially. Mild pleural effusions bilaterally. Echo: Interpretation Summary The estimated ejection fraction is 65 %. No evidence for diastolic dysfunction. Trivial mitral valve insufficiency. Consultations: Cardiology - [facility] - [facility] Operations: None, - - [facility] Procedures: 2-D Echocardiogram Summary of Care Provided: Hospital Course: The patient is a 24 year old F who presented to the ER post from C section delivery 4 days with increased SOB and LE edema. She was found to have a CXR suggestive of CHF, elevated BNP, low K and Mag, negative trop. COVID neg. She was admitted to the PCU with concern for post cardiomyopathy. She was treated with IV lasix overnight with good results. Cardiology and OBGYN were consulted. Electrolytes were replaced. Echo did not demonstrate underlying cardiomyopathy and preserved EF consistent diastolic failure. She had resolution of her edema and SOB. She was placed on prn lasix for edema. She continued to have a somewhat elevated BP and mild tachycardia and her home labetalol was increased. She was discharged home in stable condition. She will need follow up with her PCP in 1-2 weeks, cardiology in 1-2 weeks, and OBGYN as directed. This patient was seen by Kulwant Kirkland PA-C under the supervision of Dr. Baird. [] - Physical Exam Vitals/I&O's: Vital Signs Temp Pulse Resp BP Pulse Ox 98.3 F 84 18 138/87 H 96 05/04/20 12:22 05/04/20 12:22 05/04/20 12:22 05/04/20 12:05/04/20 12:24 Oxygen Flow Rate (L/min) 2 Oxygen Delivery Method Room Air Weight: 221 lb 5.506 oz Body Mass Index (BMI) 38.8 Intake and Output for Last 24 Hours 05/02/20 05/03/20 05/04/20 23:59 23:59 23:59 Intake Total 900 / 900 510 / 510 Output Total 6400 / 6400 1650 / 1650 Balance -5500 / -5500 -1140 / -1140 General: Alert, Oriented x3, Cooperative HEENT: Atraumatic, PERRLA, EOMI, Normocephalic Neck: Supple, No JVD, Negative Carotid Bruits Lungs: Clear to auscultation, Normal air movement Cardiovascular: Regular rate, No murmurs Abdomen: Bowel Sounds Present, Soft, Non Tender Extremities: No edema, Capillary Refill Less than 3 Seconds Skin: No rashes, No breakdown Musculoskeletal: No Tenderness to Palpation of Joints or Extremities Neurological: Cranial nerves II-XII grossly intact Psych/Mental Status: Normal Affect, Appropriate, Alert and oriented to time, place, person, mood and affect Laboratory Results 05/03/20 16:15: Troponin I < 0.015 05/03/20 18:35: Troponin I < 0.015 05/04/20 05:34: Sodium 141, Potassium 3.2 L, Chloride 105, Carbon Dioxide 27.0, Anion Gap 9, BUN 9, Creatinine 0.53 L, Estim Creat Clear Calc 142.56, Est GFR (MDRD) Af Amer 183, Est GFR (MDRD) Non-Af 151, BUN/Creatinine Ratio 17.0, Glucose 78, Calcium 8.5, Magnesium 1.8 05/04/20 05:34: WBC 7.9, RBC 3.55 L, Hgb 8.8 L, Hct 30.2 L, MCV 85.1, MCH 24.8 L, MCHC 29.1 L, RDW Std Deviation 68.5 H, RDW Coeff of Dejah 23.0 H, Plt Count 257, MPV 9.6, Immature Gran % (Auto) 0.600, Neut % (Auto) 67.4, Lymph % (Auto) 19.2, [place] % (Auto) 8.0, Eos % (Auto) 4.4, Baso % (Auto) 0.4, Absolute Neuts (auto) 5.3, Absolute Lymphs (auto) 1.52, Nucleated RBC % 0, Differential Comment SCANNED, Polychromasia RARE, Hypochromasia RARE, Anisocytosis RARE, Microcytosis RARE Discharge Diet: Low fat/ Low Cholesterol, 2000 mg Sodium Diet Discharge Activity: Return to Normal Activity Home Medications: Medications to take at Discharge Ferrous Sulfate [Iron Supplement] 325 mg PO BID 10/10/14 Vits [Prenatabs FA ] 1 tab PO DAILY 04/29/20 Docusate Sodium [Colace] 100 mg PO BID PRN PRN #60 cap 05/02/20 Oxycodone HCl/Acetaminophen [Percocet 5-325] 1 tab PO Q6H PRN PRN 7 Days #20 tab 05/02/20 Furosemide [Lasix] 20 mg PO DAILY PRN PRN #30 tab 05/04/20 Labetalol [Trandate (Beta Franco)] 200 mg PO BID #60 tab 05/04/20 Following Prescrptions Were Given to Patient: Furosemide [Lasix] 20 mg PO DAILY PRN PRN #30 tab PRN Reason: edema Transmission Status: Received by [facility] Labetalol [Trandate (Beta Franco)] 200 mg PO BID #60 tab Transmission Status: Received by [facility] Primary Care Physician: Care Physician,No Primary [Primary Care Provider] - Please follow up with your Primary Care Physician in: 1-2 weeks Please Follow Up With: Annie Mcconnell MD When: 1-2 weeks Please Follow Up With: Breanna Bettencourt DO When: As directed Disposition: Home Minutes spent on discharge:: 35 Patient Condition:: Stable Medical Necessity - Tobacco Use Smoking Status: Never smoker Meaningful Use Info Meaningful Use Diagnoses (Choose all that apply): CHF - CHF JOY/ARB ordered at discharge?: No Reason JOY/ARB not ordered?: Drug Interaction Documented LVEF (%): 65
== END 2020-05-04 13:20 | disposition home or self-care (01) | DRG 776 ==
LOC: ED 14:45 → PCU 15:08
PROVIDERS: Emergency Provider Emergency Medicine; Visit Provider Family Medicine
DX: O99.43 Diseases of the circulatory system complicating the puerperium (principal); I50.31 Acute diastolic (congestive) heart failure; D62 Acute posthemorrhagic anemia; I11.0 Hypertensive heart disease with heart failure; O16.5 Unspecified maternal hypertension, complicating the puerperium; O14.95 Unspecified pre-eclampsia, complicating the puerperium; O90.89 Other complications of the puerperium, not elsewhere classified; E87.6 Hypokalemia; R09.02 Hypoxemia; O99.285 Endocrine, nutritional and metabolic diseases complicating the puerperium; O99.215 Obesity complicating the puerperium; E66.9 Obesity, unspecified; Z79.899 Other long term (current) drug therapy
CPT/HCPCS: 36415; 71045; 71275; 80048; 80076; 81001; 83605; 83690; 83735; 83880; 84484; 85025; 85610; 85730; 87635; 93005; 93306; 97802; 99285; G2023; J7030; Q9967; A4216; J1940; U0003

== ENCOUNTER 2022-02-24 23:58 | Emergency (ER) | payer OTHER, MEDICAID, SELFPAY ==
[2022-02-24 23:59] VITALS: BP 143/88; PULSE 91; RESP 15; TEMP 36.2; O2SAT 100; BMI 29.4
--- NOTE | 2022-02-25 00:27 | CT_ITS ---
STUDY: CT ABDOMEN AND PELVIS WITH CONTRAST REASON FOR EXAM: Female, 26 years old. RUQ abd pain, gastric sleeve surgery October -- IV PO Contrast RADIATION DOSAGE (If Supplied By Facility): CTDIvol = ( 10.28 ) mGy, DLP = ( 756.62 ) mGycm TECHNIQUE: Transaxial images were obtained from the dome of the diaphragm to the symphysis pubis without oral contrast. Oral and amp; IV Gastrografin and amp; 100mL Isovue-300 was administered. Sagittal and coronal images were reconstructed. Individualized dose optimization techniques were used for this CT. COMPARISON: CT chest 05/03/2020. LIMITATIONS: None. LOWER CHEST: Lucencies in the left lower lobe abutting the fissure, similar compared to the prior. LIVER: Mild portal edema. GALLBLADDER/BILE DUCTS: Trace pericholecystic fluid abutting the gallbladder. No radiopaque gallstones. PANCREAS: Normal. SPLEEN: Normal. ADRENAL GLANDS: Normal. KIDNEYS/URETERS/BLADDER: Normal. RETROPERITONEUM/AORTA: Normal. BOWEL/MESENTERY: Status post gastric sleeve. No bowel dilatation or bowel wall thickening. Enteric contrast transits into the midabdomen.. APPENDIX: Identified and normal. PERITONEUM: Small free fluid in the pelvis.. REPRODUCTIVE ORGANS: Intrauterine device in place. BONES/SOFT TISSUES: No acute abnormality. OTHER: None. CT/Abdomen/Pelvis WITH Contrast IMPRESSION: 1. Status post gastric sleeve. No bowel dilatation or bowel wall thickening. 2. Mild portal edema and small pericholecystic fluid. No radiopaque gallstones. Nonspecific, differential includes hepatitis and cholecystitis. 3. Small free fluid in the pelvis. Electronically Signed: Chava Sutton MD at 3:08 EDT ,
--- NOTE | 2022-02-25 00:33 | EX.ED.DYSGE1 ---
HPI History of Present Illness Chief Complaint: Abd Pain Informant: patient Narrative Narrative: Patient was woken up about an hour and a half ago with pain in the right upper quadrant and slight epigastric area. It wraps around to the right posteriorly behind the right upper quadrant. Nothing makes it better or worse. There is no chest pain. There is no pain with breathing. No coughing. She has had nausea but no vomiting. No change in bowel habits. No urinary symptoms. No change in medications. Last night she had some chicken fingers that were not breaded. She had a protein meal at [facility] for breakfast. Patient does still have her gallbladder. She also had gastric sleeve placed at [facility] in October 2021. However, she has had no issues since. [facility] Medical History Physical exam, pre-employment Home Medications ferrous sulfate [Iron (ferrous sulfate)] 325 mg PO BID 10/10/14 [History Last Taken 04/29/20] [id number] 1 tab PO DAILY 04/29/20 [History Last Taken 04/29/20] docusate sodium 100 mg PO BID PRN PRN #60 cap 05/02/20 [Rx Last Taken Unknown] hydrocodone-acetaminophen 1 tab PO Q6H PRN 2 Days #6 tab 02/25/22 [Rx Last Taken Unknown] ondansetron 4 mg PO Q8H PRN #10 tab 02/25/22 [Rx Last Taken Unknown] Allergy/AdvReac Type Severity Reaction Status Date / Time No Known Allergies Allergy Verified 02/25/22 00:01 Social History Smoking Status: Never smoker ROS ROS ED Constitutional Constitutional ED: Denies chills or fever(s) ENT ENT ED: Denies rhinorrhea or sore throat Cardiovascular Cardiovascular: Denies chest pain, palpitations or racing heartbeat Respiratory/Chest Respiratory/Chest: Denies cough, dyspnea or sputum Gastrointestinal Gastrointestinal: Reports abdominal pain and nausea; Denies constipation, diarrhea, melena or vomiting Genitourinary Genitourinary ED: Denies dysuria, hematuria or urinary frequency Musculoskeletal Musculoskeletal: Denies myalgias Integumentary Denies rash Neurologic Neurologic: Denies paresthesias or weakness Psychiatric Psychiatric: Denies depression Endocrine Endocrinology: Denies polydipsia or polyuria Allergic/Immunologic Allergic/Immunologic ED: Denies urticaria EXAM Physical Exam Const Vital Signs: 02/24/22 23:59 Temperature 97.1 F L Temperature Source Temporal Pulse Rate 91 Respiratory Rate 15 Blood Pressure 143/88 H Blood Pressure Mean 106 Pulse Ox 100 Oxygen Delivery Method Room Air Positive well nourished and well developed Constitutional Narrative: Patient does look a little bit uncomfortable. She is actually up and I see her. General Appearance ED: well developed HEENT Reports moist mucous membranes Eyes General Eye ED: Negative for pale conjunctiva Chest Wall inspection of chest normal Resp normal respiratory effort and clear to auscultation bilaterally Resp Narrative: No pain with a deep breath. Cardio regular rate and regular rhythm GI normal to inspection, nondistended, normoactive bowel sounds and non-distended GI Narrative: Abdomen is flat nondistended. Recent port sites are well-healed. There is tenderness at the epigastrium and primarily at the right upper quadrant. She does have a positive Royal sign. No CVA tenderness. No rashes noted. Auscultation: normoactive bowel sounds Palpation: soft Back/Spine no CVA tenderness Extremity normal to inspection General Extremety ED: Negative for edema General Extremity: Negative for edema Neuro Sensorium / Orientation: alert Psych mental status grossly normal MDM MDM MDM Narrative Medical decision making narrative: Patient CBC is normal including white count. Electrolytes are normal other than minimal elevation of chloride at 113. Liver function test and lipase are all normal. Urine shows a few red cells but no sign of infection. is negative. CT scan was done that showed a trace amount of fluid near the gallbladder but no gallstones or wall thickening. No issues with gastric sleeve. Patient's recheck. She is feeling fine now. She has no tenderness. Although she has a trace amount of fluid, she does not have white count elevated liver function test or continuing pain. I do not think she needs an acute admission and cholecystectomy although I suspect that her symptoms were due to biliary colic. She may need a cholecystectomy in the future. She may need outpatient studies and possible HIDA scan. I will refer her to surgery and we discussed the need to follow-up and reasons to return. Lab Data Attestation: I reviewed the patient's lab results. Labs: Laboratory Results - last 24 hr 02/25/22 02/25/22 02/25/22 00:30 00:35 00:35 WBC 7.7 RBC 4.85 Hgb 14.2 Hct 42.4 MCV 87.4 MCH 29.3 MCHC 33.5 RDW Std Deviation 39.8 RDW Coeff of Dejah 12.6 Plt Count 187 MPV 10.6 Immature Gran % (Auto) 0.300 Neut % (Auto) 49.4 Lymph % (Auto) 36.6 [place] % (Auto) 7.9 Eos % (Auto) 5.2 H Baso % (Auto) 0.6 Absolute Neuts (auto) 3.8 Absolute Lymphs (auto) 2.82 Nucleated RBC % 0 Sodium 142 Potassium 3.0 L Chloride 113 H Carbon Dioxide 24.0 Anion Gap 5 BUN 9 Creatinine 0.75 Estim Creat Clear Calc 99.02 Est GFR (MDRD) Af Amer 120 Est GFR (MDRD) Non-Af 99 BUN/Creatinine Ratio 12.0 Glucose 103 Calcium 9.1 Total Bilirubin 0.30 AST 22 ALT 29 Alkaline Phosphatase 60 Total Protein 7.2 Albumin 4.1 Globulin 3.1 Albumin/Globulin Ratio 1.3 Lipase 200 Serum , Qual Urine Color Yellow Urine Clarity Sl. Cloudy Urine pH 8.0 Ur Specific [place] 1.015 Urine Protein 30 H Urine Glucose (UA) Normal Urine Ketones 5 H Urine Occult Blood 250 H Urine Nitrite Negative Urine Bilirubin Negative Urine Urobilinogen 4 H Ur Leukocyte Esterase 25 H Urine RBC 5-10 SEEN Urine WBC 0-5 SEEN Ur Squamous Epith Cells 0-5 SEEN Amorphous Sediment 1+ Urine Bacteria 3+ Urine Mucus 2+ 02/25/22 00:35 WBC RBC Hgb Hct MCV MCH MCHC RDW Std Deviation RDW Coeff of Dejah Plt Count MPV Immature Gran % (Auto) Neut % (Auto) Lymph % (Auto) [place] % (Auto) Eos % (Auto) Baso % (Auto) Absolute Neuts (auto) Absolute Lymphs (auto) Nucleated RBC % Sodium Potassium Chloride Carbon Dioxide Anion Gap BUN Creatinine Estim Creat Clear Calc Est GFR (MDRD) Af Amer Est GFR (MDRD) Non-Af BUN/Creatinine Ratio Glucose Calcium Total Bilirubin AST ALT Alkaline Phosphatase Total Protein Albumin Globulin Albumin/Globulin Ratio Lipase Serum , Qual NEGATIVE Urine Color Urine Clarity Urine pH Ur Specific [place] Urine Protein Urine Glucose (UA) Urine Ketones Urine Occult Blood Urine Nitrite Urine Bilirubin Urine Urobilinogen Ur Leukocyte Esterase Urine RBC Urine WBC Ur Squamous Epith Cells Amorphous Sediment Urine Bacteria Urine Mucus Radiography Diagnostic Testing: Clinical Impression(s) from Imaging Studies Abdomen/Pelvis CT 02/25/22 00:27 IMPRESSION: 1. Status post gastric sleeve. No bowel dilatation or bowel wall thickening. 2. Mild portal edema and small pericholecystic fluid. No radiopaque gallstones. Nonspecific, differential includes hepatitis and cholecystitis. 3. Small free fluid in the pelvis. Electronically Signed: Chava Sutton MD at 3:08 EDT , Discharge Plan Triage Chief Complaint: Abd Pain ED Provider: Pierre Romo Dx/Rx/DC Orders Clinical Impression: Biliary colic Instructions: ED Gallstones with Biliary Colic Prescriptions: New hydrocodone-acetaminophen 5-325 mg tablet 1 tab PO Q6H PRN (Reason: pain) 2 Days Qty: 6 RF: 0 ondansetron 4 mg tablet,disintegrating 4 mg PO Q8H PRN (Reason: nausea and vomiting) Qty: 10 RF: 0 No Action ferrous sulfate [Iron (ferrous sulfate)] 325 MG tablet 325 mg PO BID RF: 0 vit,[id number] 1 TABLET tablet 1 tab PO DAILY RF: 0 docusate sodium 100 MG capsule 100 mg PO BID PRN PRN (Reason: Constipation) Qty: 60 RF: 0 Primary Care Provider: Madison Rubio Referrals: Madison Rubio DO [Primary Care Provider] - 3-5 Days Aleyda Avendaño MD [STAFF PHYSICIAN] - 3-5 Days Disposition Disposition: Home, Self Care
[2022-02-25] MEDS: 0.9% Normal Saline 1,000 ML 1000 ML IV (00:40)
[2022-02-25] MEDS: Ondansetron 4 MG/2 ML Vial IV (00:40)
[2022-02-25] MEDS: Ketorolac 15 MG/ML Vial IV (00:41)
[2022-02-25] MEDS: Morphine 4 MG/ML Syringe IV (00:42)
[2022-02-25 00:44] LABS: Color, Urine Yellow (Yellow); Glucose, Dipstick Normal (Normal); Ketone-Dipstick 5 mg/dl (Negative); Leukocyte Esterase-Dipstick 25 /ul (Negative); Nitrite-Dipstick Negative (Negative); Occult Blood-Urine 250 /ul (Negative); Protein-Dipstick 30 mg/dl (Negative); Specific Gravity, Urine 1.015 (1.002-1.030); Urine Bilirubin Dipstick Negative (Negative); Urine Clarity Sl. Cloudy (Clear); Urine Urobilinogen 4 mg/dl (Normal)
[2022-02-25 00:44] LABS: Absolute Lymphocyte Count 2.82 X10^3/uL (0.83-4.51); Absolute Neutrophil Count 3.8 X10^3/uL (2.0-7.7); Basophil# 0.05 X10^3/uL; Basophil% 0.6 % (0-1); Eosinophils% 5.2 % (0-5); Hematocrit 42.4 % (37-47); Hemoglobin 14.2 g/dL (12.0-15.0); Lymphocyte # 2.82 X10^3/ul (0.83-4.51); Lymphocyte % 36.6 % (19-41); Mean Corp Hgb Conc 33.5 g/dL (32-36); Mean Corpuscular Hgb 29.3 pg (27.0-32.0); Mean Corpuscular Volume 87.4 fL (81-99); Mean Platelet Vol. 10.6 fl (6.2-12.0); Monocyte# 0.61 X10^3/uL; Monocyte% 7.9 % (0-10); NRBC Flagged by Analyzer 0 % (0-5); Neutrophil # 3.81 X10^3/uL (2.7-7.7); Neutrophil % 49.4 % (47-70); Platelet Count 187 K/mm3 (150-450); RBC Distribution Width CV 12.6 % (11.6-14.6); RBC Distribution Width SD 39.8 fl (35.1-43.9); Red Blood Count 4.85 M/mm3 (4.2-5.4); White Blood Count 7.7 K/mm3 (4.4-11.0)
[2022-02-25 01:04] LABS: Bacteria 3+ /hpf (None Seen); White Blood Cells 0-5 SEEN /hpf (0-5)
[2022-02-25 01:05] LABS: Amorphous Sediment 1+; Mucous, Urine 2+ /hpf (<or=2+); Red Blood Cells-Urine 5-10 SEEN /hpf (0-5); Squamous Epithelial Cells - UA 0-5 SEEN /hpf (5-10)
[2022-02-25 01:08] LABS: Internal QC Validated? YES +Cl - CLEAR BKGD; Pregnancy, Serum, hCG Quali. NEGATIVE Negative
[2022-02-25 01:12] LABS: ALB/GLOB Ratio 1.3 RATIO (0.9-2.4); AST(SGOT) 22 U/L (15-37); Alanine Aminotransfer ALT/SGPT 29 U/L (13-56); Albumin, Serum 4.1 g/dL (3.2-5.0); Alkaline Phosphatase 60 U/L (45-117); Anion Gap 5 (5-15); BUN 9 mg/dL (7-18); Calcium,Total 9.1 mg/dL (8.5-10.1); Chloride 113 mmol/L (98-107); Creatinine, Serum 0.75 mg/dL (0.55-1.02); EST Glomerular Filtration Rate 99 mL/min (>60); Est Glom Filt Rate - Afr Amer 120 mL/min (>60); Estimated Creatinine Clearance 99.02 ml/min; Globulin 3.1 g/dL (2.2-4.2); Glucose 103 mg/dL (74-106); Lipase 200 U/L (73-393); Protein, Total 7.2 g/dL (6.4-8.2); Sodium Level 142 mmol/L (136-145)
[2022-02-25 03:29] VITALS: BP 95/74; PULSE 76; RESP 16; O2SAT 100
== END 2022-02-25 03:30 | disposition home or self-care (01) ==
PROVIDERS: Emergency Provider Emergency Medicine; PCP Internal Medicine; Visit Provider Emergency Medicine
DX: K80.50 Calculus of bile duct without cholangitis or cholecystitis without obstruction (principal); Z79.899 Other long term (current) drug therapy; Z98.84 Bariatric surgery status
CPT/HCPCS: 74177; 80053; 81001; 83690; 84703; 85025; 96361; 96374; 96375; 99282; J7030; Q9967; A4216; J2405

== ENCOUNTER 2022-10-25 04:34 | Observation (INO) | payer MEDICAID, SELFPAY ==
[2022-10-25] VITALS (18 sets, daily range): BP systolic 103–134; BP diastolic 61–89; PULSE 58–93; RESP 14–18; TEMP 35.9–37.2; O2SAT 95–100; BMI 26.3; BMI 26.2
--- NOTE | 2022-10-25 04:50 | ED.VIS.GI ---
HPI HPI - GI History of Present Illness Chief Complaint: Abd Pain Informant: patient Nausea/Vomiting/Emesis GI Symptom: Positive for Nausea Narrative Narrative: Awaken 1 AM right upper quadrant pain radiating to her scapula and shoulder. Nausea without vomiting. No urinary symptoms. Recently finished her menstrual period. No diarrhea. History of similar with her gallbladder. She was seen in February of this year with concerning symptoms. She ate chicken breast at 9 PM along with spicy sauce. She had a gastric sleeve in [place] [address] Nolan through . Since her symptoms in February she did not follow-up with surgery. She was given prescription for hydrocodone and Zofran which she took intermittently. History of preeclampsia with cardiomyopathy in 2019. Denies any allergies. Prior similar symptoms: Yes PFSH COUNTS INCLUDE 234 BEDS AT THE [facility] Medical History Physical exam, pre-employment Home Medications ferrous sulfate 325 mg (65 mg iron) tablet (Iron (ferrous sulfate)) 325 mg PO DAILY 10/10/14 [History Last Taken 04/29/20] calcium citrate 1,000 mg tablet 1,000 mg PO DAILY 10/25/22 [History Last Taken Unknown] multivitamin 1 tab PO DAILY 10/25/22 [History Last Taken Unknown] Allergy/AdvReac Type Severity Reaction Status Date / Time No Known Allergies Allergy Verified 02/25/22 00:01 Social History Smoking Status: Never smoker [facility] ED Constitutional Constitutional ED: Denies chills, fever(s) or sweats Eyes Eyes: Denies change in vision ENT ENT ED: Denies dysphagia or sore throat Cardiovascular Cardiovascular: Denies chest pain, leg edema, palpitations or racing heartbeat Respiratory/Chest Respiratory/Chest: Denies cough, dyspnea or dyspnea on exertion Gastrointestinal Gastrointestinal: Reports abdominal pain and nausea; Denies diarrhea or vomiting Genitourinary Genitourinary ED: Denies dysuria, hematuria or urinary frequency Musculoskeletal Musculoskeletal: Denies back pain, extremity pain or neck pain Integumentary Denies rash or wounds Neurologic Neurologic: Denies headache(s), paresthesias or weakness EXAM Physical Exam Const Vital Signs: 10/25/22 04:35 10/25/22 04:38 10/25/22 07:55 Temperature 96.7 F L 96.7 F L Temperature Source Temporal Temporal Pulse Rate 77 77 70 Respiratory Rate 16 16 16 Blood Pressure 130/89 H 130/89 H 126/86 H Blood Pressure Mean 102 102 99 Pulse Ox 100 100 100 Oxygen Delivery Method Room Air Room Air Room Air Positive well nourished and well developed General Appearance ED: well developed and NAD HEENT Reports moist mucous membranes normocephalic and atraumatic Eyes PERRL, EOMs intact bilaterally and conjunctivae normal General Eye ED: Yes normal appearance of both eyes Neck no lymphadenopathy and supple General: Negative for tenderness Chest Wall Chest: Negative for tenderness Resp normal respiratory effort and normal air movement Effort and Inspection: symmetric chest movement; Negative for respiratory distress Cardio regular rate, regular rhythm and no murmurs Peripheral Pulses: pulses 2+ throughout GI normal to inspection, nondistended, normoactive bowel sounds GI Narrative: Right upper quadrant tenderness with positive Royal's. Negative McBurney's. Palpation: guarding; Negative for rebound tenderness present Back/Spine no CVA tenderness and no thoracic nor lumbar tenderness Extremity normal to inspection General Extremety ED: Negative for edema or tenderness General Extremity: Negative for edema Neuro oriented x3 and no sensory deficits noted Sensorium / Orientation: awake and alert Skin no rashes or lesions noted and no wounds MDM MDM MDM Narrative Medical decision making narrative: Patient positive Royal sign. IV established history of morphine Zofran and fluids. Labs White count 7.5 hemoglobin 13.7. Creatinine 0.69. Lipase 153. Liver enzymes slight elevation AST at 60. Symptoms were improved on reevaluation however tender on reevaluation right upper quadrant. Right upper quadrant ultrasound was ordered, results concerning for cholelithiasis with mild free fluid. No thickening gallbladder, normal common bile duct. Per radiologist there is gallbladder distention. History and exam concerning for cholecystitis. 0740: I spoke with on-call surgeon Dr. Walker abdomen patient's findings. He will evaluate the patient in the ED for disposition. Patient kept n.p.o. while in the emergency department. 0800: Patient seen by surgery will admit to surgery service for plan OR today. Zosyn started. Coags and type and screen added. Preop chest x-ray 1 view reviewed myself shows no acute process. No additional medications required. IV fluids continued with n.p.o. status. Lab Data Attestation: I reviewed the patient's lab results. Labs: Laboratory Results - last 24 hr 10/25/22 10/25/22 10/25/22 05:00 05:00 05:00 WBC 7.5 RBC 4.52 Hgb 13.7 Hct 40.7 MCV 90.0 MCH 30.3 MCHC 33.7 RDW Std Deviation 38.7 RDW Coeff of Dejah 11.8 Plt Count 187 MPV 9.9 Immature Gran % (Auto) 0.300 Neut % (Auto) 71.8 H Lymph % (Auto) 19.7 [place] % (Auto) 5.6 Eos % (Auto) 2.1 Baso % (Auto) 0.5 Absolute Neuts (auto) 5.4 Absolute Lymphs (auto) 1.47 Nucleated RBC % 0 Sodium 143 Potassium 3.3 L Chloride 108 H Carbon Dioxide 27.0 Anion Gap 8 BUN 7 Creatinine 0.69 Estim Creat Clear Calc 106.69 Est GFR (MDRD) Af Amer 131 Est GFR (MDRD) Non-Af 109 BUN/Creatinine Ratio 10.1 Glucose 100 Calcium 9.1 Total Bilirubin 0.40 Direct Bilirubin 0.12 AST 60 H ALT 41 Alkaline Phosphatase 73 Total Protein 7.0 Albumin 3.8 Globulin 3.2 Lipase 153 Serum , Qual NEGATIVE Radiography Diagnostic Testing: Clinical Impression(s) from Imaging Studies Gallbladder Ultrasound 10/25/22 06:34 IMPRESSION: Cholelithiasis with gallbladder distention and trace pericholecystic fluid. Correlate clinically for symptoms of acute cholecystitis. Electronically Signed: Srinivasan Zhang MD at 7:50 EST , Discharge Plan Triage Chief Complaint: Abd Pain ED Provider: Rosas Palma Dx/Rx/DC Orders Primary Care Provider: Care Physician,No Primary
[2022-10-25] MEDS: Ondansetron 4 MG/2 ML Vial IV ×2 (05:08→10:18)
[2022-10-25] MEDS: 0.9% Normal Saline 1,000 ML 125 ML IV ×2 (05:08→16:47)
[2022-10-25] MEDS: Morphine 4 MG/ML Syringe IV (05:09)
[2022-10-25 05:16] LABS: Absolute Lymphocyte Count 1.47 X10^3/uL (0.83-4.51); Absolute Neutrophil Count 5.4 X10^3/uL (2.0-7.7); Basophil# 0.04 X10^3/uL; Basophil% 0.5 % (0-1); Eosinophil# 0.16 X10^3/uL; Eosinophils% 2.1 % (0-5); Hematocrit 40.7 % (37-47); Hemoglobin 13.7 g/dL (12.0-15.0); Lymphocyte # 1.47 X10^3/ul (0.83-4.51); Lymphocyte % 19.7 % (19-41); Mean Corp Hgb Conc 33.7 g/dL (32-36); Mean Corpuscular Hgb 30.3 pg (27.0-32.0); Mean Platelet Vol. 9.9 fl (6.2-12.0); Monocyte# 0.42 X10^3/uL; Monocyte% 5.6 % (0-10); NRBC Flagged by Analyzer 0 % (0-5); Neutrophil # 5.35 X10^3/uL (2.7-7.7); Neutrophil % 71.8 % (47-70); Platelet Count 187 K/mm3 (150-450); RBC Distribution Width CV 11.8 % (11.6-14.6); RBC Distribution Width SD 38.7 fl (35.1-43.9); Red Blood Count 4.52 M/mm3 (4.2-5.4); White Blood Count 7.5 K/mm3 (4.4-11.0)
[2022-10-25 05:25] LABS: Internal QC Validated? YES +Cl - CLEAR BKGD; Pregnancy, Serum, hCG Quali. NEGATIVE Negative
[2022-10-25 05:38] LABS: AST(SGOT) 60 U/L (15-37); Alanine Aminotransfer ALT/SGPT 41 U/L (13-56); Albumin, Serum 3.8 g/dL (3.2-5.0); Alkaline Phosphatase 73 U/L (45-117); Anion Gap 8 (5-15); BUN 7 mg/dL (7-18); BUN/Creat Ratio 10.1 RATIO (10-20); Bilirubin, Direct 0.12 mg/dL (0.00-0.30); Calcium,Total 9.1 mg/dL (8.5-10.1); Chloride 108 mmol/L (98-107); Creatinine, Serum 0.69 mg/dL (0.55-1.02); EST Glomerular Filtration Rate 109 mL/min (>60); Est Glom Filt Rate - Afr Amer 131 mL/min (>60); Estimated Creatinine Clearance 106.69 ml/min; Globulin 3.2 g/dL (2.2-4.2); Glucose 100 mg/dL (74-106); Lipase 153 U/L (73-393); Potassium 3.3 mmol/L (3.5-5.1); Sodium Level 143 mmol/L (136-145)
--- NOTE | 2022-10-25 06:34 | US_ITS ---
INDICATION: RUQ pain EXAMINATION: US Abdomen RUQ (limited) TECHNIQUE: Osman scale and color doppler imaging was performed of the right upper quadrant. COMPARISON: CT abdomen and pelvis from 02/25/2022 FINDINGS: LIVER: There is normal echotexture. No focal hepatic lesion. No significant intrahepatic biliary ductal dilatation. The right lobe of liver measures 14 cm in length. Main portal vein patent. GALLBLADDER AND BILIARY TREE: Distended gallbladder contains multiple shadowing gallstones. Gallbladder measures 9.5 cm in length. There is trace pericholecystic fluid but no significant gallbladder wall thickening. The proximal common bile duct measures 2.7 mm, which is within normal limits for the patient''s age. Sonographic Royal''s sign: Negative. PANCREAS: Unremarkable as visualized. RIGHT KIDNEY: Right kidney measures 10.6 cm in length. No hydronephrosis. No discrete right renal lesion demonstrated. VESSELS: Unremarkable as visualized. US/Gallbladder IMPRESSION: Cholelithiasis with gallbladder distention and trace pericholecystic fluid. Correlate clinically for symptoms of acute cholecystitis. Electronically Signed: Srinivasan Zhang MD at 7:50 EST ,
--- NOTE | 2022-10-25 08:04 | RAD_ITS ---
STUDY: X-RAY CHEST REASON FOR EXAM: Female, 27 years old. Preop TECHNIQUE: Single AP portable view of the chest. COMPARISON: Comparison is made with prior study dated 05/03/2020. FINDINGS: The lungs are clear and expanded. There is no demonstrated pleural abnormality. Normal size heart. Normal mediastinum and betty. Normal visualized pulmonary arteries. Normal visualized aortic arch and descending thoracic aorta. Normal visualized thoracic spine. Normal visualized ribs, clavicles, and shoulders. There is no demonstrated abnormality of the visualized soft tissue structures of the upper abdomen. RAD/Chest 1 View (Portable) IMPRESSION: Normal x-ray examination of the chest. Electronically Signed: Lionel Rosa MD at 10:18 EST ,
[2022-10-25 09:01] LABS: International Normalized Ratio 1.1; Partial Thromboplast Time 29.8 Seconds (24.1-36.2); Prothrombin Time (Protime)PT. 13.8 SECONDS (11.7-14.9)
[2022-10-25] MEDS: 0.9% Saline Lock 10 ML Syringe IV (10:18)
[2022-10-25] MEDS: Morphine 2 MG/ML Syringe IV (10:18)
--- NOTE | 2022-10-25 11:38 | HP.PCM.SX_ITS ---
HPI - General General Date of Admission: 10/25/22 HPI Narrative RYAN HERNANDEZ, is a 27 F who presents with right upper quad pain. The patient reports this woke her from sleep this morning. She was seen in the emergency room a few months ago with signs of acute cholecystitis but never followed up. Patient reports the pain is in the right upper quadrant radiates to the right shoulder blade. Denies nausea or vomiting. [facility] Medical History Physical exam, pre-employment Home Medications ferrous sulfate 325 mg (65 mg iron) tablet (Iron (ferrous sulfate)) 325 mg PO DAILY 10/10/14 [History Last Taken 10/24/22] calcium citrate 1,000 mg tablet 1,000 mg PO DAILY 10/25/22 [History Last Taken 10/24/22] multivitamin 1 tab PO DAILY 10/25/22 [History Last Taken 10/24/22] omeprazole 40 mg capsule,delayed release 40 mg PO DAILY stomach 10/25/22 [History Last Taken 10/25/22] Allergy/AdvReac Type Severity Reaction Status Date / Time No Known Allergies Allergy Verified 02/25/22 00:01 Surgical History no surgical history Social History Smoking Status: Never smoker ROS Constitutional Constitutional: Denies anorexia, chills or fatigue Eyes Eyes: Denies change in vision ENT HEENT: Denies dysphagia Cardiovascular Cardiovascular: Denies chest pain or chest pain at rest Respiratory/Chest Respiratory/Chest: Denies cough or dyspnea Gastrointestinal Gastrointestinal: Reports abdominal pain; Denies diarrhea, hematemesis, nausea or vomiting Genitourinary Genitourinary: Denies change in urinary stream Musculoskeletal Musculoskeletal: Denies abnormal gait Integumentary Integumentary: Denies jaundice Neurologic Neurologic: Denies abnormal gait or dizziness Psychiatric Psychiatric: Denies anxiety Endocrine Endocrinology: Denies flushing Hematologic/Lymphatic Hematologic/Lymphatic: Denies easy bleeding Vital Signs Vital Signs Vital Signs: 10/25/22 04:35 10/25/22 04:38 10/25/22 07:55 Temperature 96.7 F L 96.7 F L Temperature Source Temporal Temporal Pulse Rate 77 77 70 Respiratory Rate 16 16 16 Blood Pressure 130/89 H 130/89 H 126/86 H Blood Pressure Mean 102 102 99 Blood Pressure Source Blood Pressure Position Blood Pressure Location Pulse Ox 100 100 100 Oxygen Delivery Method Room Air Room Air Room Air 10/25/22 09:00 10/25/22 09:24 Temperature 96.7 F L 97.9 F Temperature Source Temporal Temporal Pulse Rate 70 58 L Respiratory Rate 16 16 Blood Pressure 126/86 H 103/65 Blood Pressure Mean 99 77 Blood Pressure Source Monitor Blood Pressure Position Sitting Blood Pressure Location Right Arm Pulse Ox 100 95 Oxygen Delivery Method Room Air Room Air Weight Weight: 153 lb Body Mass Index (BMI) 26.2 Physical Exam Const oriented x3 and no apparent distress Resp normal respiratory effort Cardio regular rate and regular rhythm GI soft to palpation Inspection: Negative for abdominal distention Palpation: tender RUQ and Royal's sign Extremity normal to inspection Results Lab / Micro Data Result Diagrams: 10/25/22 05:00 10/25/22 05:00 Labs: Laboratory Results - last 24 hr 10/25/22 05:00: WBC 7.5, RBC 4.52, Hgb 13.7, Hct 40.7, MCV 90.0, MCH 30.3, MCHC 33.7, RDW Std Deviation 38.7, RDW Coeff of Dejah 11.8, Plt Count 187, MPV 9.9, Immature Gran % (Auto) 0.300, Neut % (Auto) 71.8 H, Lymph % (Auto) 19.7, Spencer % (Auto) 5.6, Eos % (Auto) 2.1, Baso % (Auto) 0.5, Absolute Neuts (auto) 5.4, Absolute Lymphs (auto) 1.47, Nucleated RBC % 0 10/25/22 05:00: Sodium 143, Potassium 3.3 L, Chloride 108 H, Carbon Dioxide 27.0, Anion Gap 8, BUN 7, Creatinine 0.69, Estim Creat Clear Calc 106.69, Est GFR (MDRD) Af Amer 131, Est GFR (MDRD) Non-Af 109, BUN/Creatinine Ratio 10.1, Glucose 100, Calcium 9.1, Total Bilirubin 0.40, Direct Bilirubin 0.12, AST 60 H, ALT 41, Alkaline Phosphatase 73, Total Protein 7.0, Albumin 3.8, Globulin 3.2, Lipase 153 10/25/22 05:00: Serum , Qual NEGATIVE 12/06/22 08:09: PT 13.8, INR 1.1, APTT 29.8 10/25/22 08:09: Blood Type O POSITIVE, Antibody Screen NEGATIVE Radiology Impression Gallbladder Ultrasound 10/25/22 06:34 IMPRESSION: Cholelithiasis with gallbladder distention and trace pericholecystic fluid. Correlate clinically for symptoms of acute cholecystitis. Electronically Signed: Srinivasan Zhang MD at 7:50 EST , Chest X-Ray 10/25/22 08:04 IMPRESSION: Normal x-ray examination of the chest. Electronically Signed: Lionel Rosa MD at 10:18 EST , Assessment & Plan Assessment/Plan (1) Acute cholecystitis: PLAN: The patient has right upper quadrant pain which is point tenderness in the right upper quadrant and she does have a positive Royal sign. She had a normal white count but she did have a left shift. She had ultrasound showed multiple stones and sludge in the gallbladder with pericholecystic fluid but no wall thickening. Patient likely has early acute cholecystitis and I recommend laparoscopic cholecystectomy. Patient was given antibiotics and admitted until surgery this afternoon. I discussed the procedure in detail with the patient. I discussed the risks, benefits, and alternatives of the procedure. I discussed the risks including but not limited to bleeding, infection, injury to surrounding organs such as the liver, bile duct, bowels. I did discuss the possibility of having to convert to an open procedure as well as the possibility that if any injuries occurred this may necessitate further surgery at a tertiary care center. Magdy Walker MD Pager: [facility] [address] [place] [address], [address] [place] [address] Office:
--- NOTE | 2022-10-25 11:46 | EKG12_ITS ---
Test Reason : PRE-OP Blood Pressure : / mmHG Vent. Rate : 055 BPM Atrial Rate : 055 BPM P-R Int : 174 ms QRS Dur : 088 ms QT Int : 444 ms P-R-T Axes : 052 055 061 degrees QTc Int : 424 ms Sinus bradycardia Otherwise normal ECG When compared with ECG of 03-MAY-2020 12:00, Vent. rate has decreased BY 39 BPM Confirmed by SIMI SANCHEZ, WILFRED ([id number]), society editor JASSON JASON ([id number]) on 11/01/2022 11:14:15 AM Referred By: Confirmed By:IKE BELCHER MD
--- NOTE | 2022-10-25 12:45 | GALL_PTH ---
PATIENT: RYAN HERNANDEZ LOC: MS3 U#:[id number] AGE/SX: 27/F ROOM: MS321 RE10/25/[address]: Dr. Magdy Walker MD : 1995 BED: 1 DIS: 10/26/2022 SPEC #: [id number] RECD: 10/25/22 16:12 STATUS: YESSENIA GUNDERSONElver #: [id number] PHYLLIS: 10/25/22 12:[address]: Magdy Walker DEPT: SURGICAL PATHOLOGY RECD BY: Anibal Day ENTERED: 10/26/22 07:37 SP TYPE: JOSELITO CAREY DR: No Primary Care Phys Tissues: Gallbladder, NOS Procedures: Surgery Specimen Level III HEADER OPERATION: Laparoscopic cholecystectomy with IOC PRE-OP DIAGNOSIS: Acute cholecystitis TISSUE SUBMITTED: Gallbladder and contents MICROSCOPIC DIAGNOSIS Gallbladder, cholecystectomy: Chronic cholecystitis and cholelithiasis. AM:dionne 10/27/2022 MICROSCOPIC DESCRIPTION Slides are reviewed. GROSS DESCRIPTION Received is one container labeled with the patient's name and designated gallbladder and contents. The specimen consists of a gallbladder measuring 9.5 cm in length and 4 cm in diameter. The external surface is pink-villatoro, smooth and glistening for the most part. Focally it is granular, hemorrhagic and contains cautery artifact. The gallbladder contains green-yellow mucoid bile and multiple orange, mulberry stones measuring in aggregate 3 x 3 x 1 cm and 0.1 to 0.3 cm in greatest dimension. The mucosa is bile-stained and without any mass lesions. The gallbladder wall measures up to 0.1 cm in thickness. Theatrical Variety Agent sections from the gallbladder and the cystic duct are submitted in one cassette. / SJ:dionne 10/26/2022 TC:3 CPT: 06124
--- NOTE | 2022-10-25 14:15 | RAD_ITS ---
EXAM: FL CHOLANGIOGRAPHY AND/OR PANCREATOGRAPHY CLINICAL INDICATION: LAP ANA TECHNIQUE: Fluoroscopic cholangiogram and/or pancreatography of the right upper quadrant. Fluoroscopic guidance was provided by a physician. This report was created using [employer] report [employer] technology. COMPARISON: None. FINDINGS: 2 cine loops of the right upper quadrant obtained with contrast injected into the cystic duct remnant at the time of cholecystectomy. Images demonstrate several small rounded filling defects which are consistent with stones and possibly air bubbles. Contrast extends into the intrahepatic biliary radicles as well as through the ampulla into the duodenum. Total fluoroscopy time of 36 seconds. See operative note for additional information. RAD/Cholangiogram/ O R,Initial IMPRESSION: As above. Electronically Signed: Clovis Mariscal MD at 15:16 EST ,
[2022-10-25] MEDS: Bupivacaine 0.25% 30 ML Vial (14:41)
--- NOTE | 2022-10-25 15:12 | OP.PCM_ITS ---
Report of Operation Date of Procedure: 10/25/22 Pre-Operative Diagnosis: Acute cholecystitis Post-Operative Diagnosis: Acute cholecystitis Surgery/Procedure Performed:: Laparoscopic cholecystectomy with cholangiogram Specimen's removed: Gallbladder Description of Procedure: After obtaining informed consent patient was brought back to the operating room. General anesthesia was induced. The abdomen was prepped and draped in usual sterile fashion. A small midline incision was made superior to the umbilicus and deepened to the level of fascia. The fascia was elevated and incised. Next the peritoneum was elevated and incised in the same fashion. Finger sweep was performed and the Cueva trocar was placed into the abdomen. The balloon was inflated. The abdomen was inflated to 15 mmHg. Next a camera was introduced into the abdomen and the abdomen was inspected. Next under direct visualization three 5-mm ports were placed one subxiphoid and 2 subcostal. Next the gallbladder was elevated and retracted toward the right shoulder. The peritoneum was stripped from the gallbladder. The infundibulum was located and retracted laterally. Next the triangle of Calot was dissected and the cystic duct and cystic artery were identified. Cholangiograms were performed. The Galindo clamp was used to clamp across the infundibulum and the catheter needle was inserted into the gallbladder. Contrast was unable to flow into the cystic duct. Next the Galindo was removed and a small he was made the right upper quadrant and the Ranfac catheter was placed into the abdomen. A clip was placed in the proximal cystic duct and a he was made in the cystic duct and it was milked backwards and then the Ranfac catheter was placed into the cystic duct and a clip was placed over it. Under fluoroscopy contrast was instilled into the gallbladder and the common duct, cystic duct as well as proximal hepatic ducts were identified. There was good filling of the duodenum. There were no filling defects noted in the common bile duct. There were a few small bubbles but these appeared very mobile and there was good passage of contrast around them. The clip and Ranfac catheter were removed and the infundibulum was grasped once more. Three hemolock clips were placed across the cystic duct. The cystic duct was then divided leaving 2 clips on the stump. The cystic artery was clipped and divided in the same fashion. The hook cautery was then used to take the gallbladder off of the gallbladder bed. Hemostasis was obtained. Gallbladder fossa was irrigated and no active bleeding or bile leakage was noted. Next the camera was introduced in the subxiphoid port. An Endopouch bag was placed through the umbilical port and the gallbladder was placed into it. The gallbladder was then removed through the umbilical incision. The camera was then reinserted through the umbilical port. The gallbladder fossa was inspected once more and noted to be hemostatic with no leaking bile. The abdomen was suctioned dry. The 5 mm ports were removed under direct visualization. The umbilical port was then removed and the air was removed from the abdomen. Next using an 0 Vicryl suture the umbilical fascia was closed in a [id number] fashion. The umbilical port site was irrigated local anesthetic was administered to all the incisions. All the incisions were closed with interrupted subcuticular 4-0 Monocryl sutures followed by Steri- Strips and dressings. The patient was awoken and taken to PACU in stable condition. Admit VTE Documentation VTE Mechan Device Prophylaxis: SCD's
[2022-10-25] MEDS: Acetaminophen 325 MG Tablet 650 MG PO (18:51)
[2022-10-25] MEDS: oxyCODONE 5 MG Tablet PO (18:52)
[2022-10-25] MEDS: 0.9% Normal Saline 1,000 ML 50 ML IV (18:57)
[2022-10-26 01:13] VITALS: BP 104/63; PULSE 67; RESP 16; TEMP 36.8; O2SAT 98
[2022-10-26 01:21] VITALS: BP 104/63; PULSE 67; RESP 16; TEMP 36.8; O2SAT 98
[2022-10-26] MEDS: oxyCODONE 5 MG Tablet PO ×2 (01:31→09:25)
[2022-10-26] MEDS: Acetaminophen 325 MG Tablet 650 MG PO (01:31)
[2022-10-26 05:35] VITALS: BP 110/56; PULSE 70; RESP 16; TEMP 36.6; O2SAT 99
[2022-10-26 06:50] LABS: Absolute Neutrophil Count 8.5 X10^3/uL (2.0-7.7); Basophil# 0.02 X10^3/uL; Basophil% 0.2 % (0-1); Eosinophil# 0.02 X10^3/uL; Eosinophils% 0.2 % (0-5); Hematocrit 39.2 % (37-47); Hemoglobin 12.6 g/dL (12.0-15.0); Lymphocyte % 11.7 % (19-41); Mean Corp Hgb Conc 32.1 g/dL (32-36); Mean Corpuscular Hgb 29.2 pg (27.0-32.0); Mean Corpuscular Volume 90.7 fL (81-99); Mean Platelet Vol. 10.1 fl (6.2-12.0); Monocyte# 0.55 X10^3/uL; Monocyte% 5.3 % (0-10); NRBC Flagged by Analyzer 0 % (0-5); Neutrophil # 8.47 X10^3/uL (2.7-7.7); Neutrophil % 82.3 % (47-70); Platelet Count 192 K/mm3 (150-450); RBC Distribution Width CV 11.7 % (11.6-14.6); RBC Distribution Width SD 39.4 fl (35.1-43.9); Red Blood Count 4.32 M/mm3 (4.2-5.4); White Blood Count 10.3 K/mm3 (4.4-11.0)
[2022-10-26 07:22] LABS: ALB/GLOB Ratio 1.2 RATIO (0.9-2.4); AST(SGOT) 102 U/L (15-37); Alanine Aminotransfer ALT/SGPT 152 U/L (13-56); Albumin, Serum 3.7 g/dL (3.2-5.0); Alkaline Phosphatase 67 U/L (45-117); Anion Gap 3 (5-15); BUN 5 mg/dL (7-18); BUN/Creat Ratio 7.4 RATIO (10-20); Calcium,Total 9.3 mg/dL (8.5-10.1); Chloride 109 mmol/L (98-107); Creatinine, Serum 0.68 mg/dL (0.55-1.02); EST Glomerular Filtration Rate 111 mL/min (>60); Est Glom Filt Rate - Afr Amer 135 mL/min (>60); Estimated Creatinine Clearance 108.26 ml/min; Globulin 3.2 g/dL (2.2-4.2); Glucose 102 mg/dL (74-106); Potassium 3.6 mmol/L (3.5-5.1); Protein, Total 6.9 g/dL (6.4-8.2); Sodium Level 141 mmol/L (136-145)
[2022-10-26 09:30] VITALS: BP 126/63; PULSE 69; RESP 16; TEMP 36.5; O2SAT 99
--- NOTE | 2022-10-26 10:32 | DCINST_ITS ---
Discharge Instructions Procedure Appendectomy Diet Discharge Diet: Light diet - advance as tolerated Activity Discharge Activity: May Not Drive (for 2-3 days or while taking narcotic pain medications.) May shower in (days): 1 Lifting Restrictions: 20 lbs for 2 weeks Dressing / Incision Call your doctor if your incision/area has: Continuous Slow Oozing, Sudden Increased Bleeding, Increased Pain/ Swelling, Increased Redness and Foul Smelling Discharge Call your doctor if you observe: Fever of 101 or Higher Suture Line Care: Avoid Pulling/Pushing and Avoid Pinching/Bending Remove Dressing in: 2 days Cleanse incision/area with: Soap & Water Additional Dressing/Incision Instructions:: Keep dressing clean and dry. Change or remove dressing in 2 days. Leave steri strips for 1 week. May protect with a gauze bandaid. Follow Up Care Please Follow Up With: Magdy Walker MD When: Please call to schedule 2 week follow up appointment. [phone] Test Results: Test results from this visit will be discussed in further detail at your follow- up appointment, if applicable. Discharge Plan Admission Admit Date/Time: 10/25/22 08:29 Attending Provider: Magdy Walker Primary Care Provider: Care Physician,No Primary Discharge Orders/Prescriptions Prescriptions: New acetaminophen [Tylenol] 325 mg Tablet 650 mg PO Q4H PRN PRN (Reason: Pain 1-10 Or Fever) Qty: 0 0RF oxycodone 5 mg Tablet 5 - 10 mg PO Q4H PRN PRN (Reason: Pain Score 4-10) 5 Days Qty: 30 0RF Continued ferrous sulfate [Iron (ferrous sulfate)] 325 MG tablet 325 mg PO DAILY multivitamin Tablet 1 tab PO DAILY calcium citrate 1,000 mg Tablet 1,000 mg PO DAILY omeprazole 40 mg capsule,delayed release(DR/EC) 40 mg PO DAILY Referrals / Follow Up: Madison Rubio DO [Non-Staff] - Care Physician,No Primary [Primary Care Provider] - Disposition Disposition (needs filled in before D/C Order can be placed): Home, Self Care
--- NOTE | 2022-10-26 10:35 | PN.SURG_ITS ---
Subjective Subjective Patient reports she is doing well and oral pain medications are controlling her pain. No nausea or vomiting. Tolerating diet. Objective Data Objective Data Vital Signs: Vital Signs Temp Pulse Resp BP Pulse Ox O2 Del Method 97.7 F L 69 16 126/63 H 99 Room Air 10/26/22 09:30 10/26/22 09:30 10/26/22 09:30 10/26/22 09:30 10/26/22 09:30 10/26/22 09:30 Oxygen Delivery Method Room Air Weight: 153 lb Body Mass Index (BMI) 26.2 Intake & Output: Intake and Output for Last 24 Hours 10/24/22 10/25/22 10/26/22 23:59 23:59 23:59 Intake Total 2246.66 / 2246.66 800 / 800 Output Total 210 / 210 700 / 700 Balance 2036.66 / 2036.66 100 / 100 Lab / Micro Data Result Diagrams: 10/26/22 06:30 10/26/22 06:30 Labs: Laboratory Results - last 24 hr 10/26/22 06:30: WBC 10.3, RBC 4.32, Hgb 12.6, Hct 39.2, MCV 90.7, MCH 29.2, MCHC 32.1, RDW Std Deviation 39.4, RDW Coeff of Dejah 11.7, Plt Count 192, MPV 10.1, Immature Gran % (Auto) 0.300, Neut % (Auto) 82.3 H, Lymph % (Auto) 11.7 L, Millard % (Auto) 5.3, Eos % (Auto) 0.2, Baso % (Auto) 0.2, Absolute Neuts (auto) 8.5 H, Absolute Lymphs (auto) 1.20, Nucleated RBC % 0 10/26/22 06:30: Sodium 141, Potassium 3.6, Chloride 109 H, Carbon Dioxide 29.0, Anion Gap 3 L, BUN 5 L, Creatinine 0.68, Estim Creat Clear Calc 108.26, Est GFR (MDRD) Af Amer 135, Est GFR (MDRD) Non-Af 111, BUN/Creatinine Ratio 7.4 L, Glucose 102, Calcium 9.3, Total Bilirubin 0.80, AST 102 H, ALT 152 H, Alkaline Phosphatase 67, Total Protein 6.9, Albumin 3.7, Globulin 3.2, Albumin/Globulin Ratio 1.2 Radiography Diagnostic Testing: Radiology Impression Cholangiogram 10/25/22 14:15 IMPRESSION: As above. Electronically Signed: Clovis Mariscal MD at 15:16 EST , Assessment & Plan Assessment/Plan (1) Acute cholecystitis: PLAN: Patient is doing well this morning with no nausea or vomiting and tolerating a diet. I will discharge her home. Magdy Walker MD Pager: [facility] [address] [place] [address], [address] [place] [address] Office:
[2022-10-26] MEDS: FLU VACC QS2022-23(6MOS UP)/PF 60 MCG/0.5 ML SYRINGE IM (10:45)
[2022-10-26 10:48] VITALS: BP 126/63; PULSE 69; RESP 18; TEMP 36.5; O2SAT 99
--- NOTE | 2022-10-26 11:38 | PHA.DC.MC ---
Pharmacy Service has performed discharge medication reconciliation and counseling for this patient. 1. OXYCODONE 5-10MG PO Q4H PRN PAIN 4-10 The patient's discharge medication list was reviewed for discrepancies and discrepancies were resolved. Home Medications ferrous sulfate 325 mg (65 mg iron) tablet (Iron (ferrous sulfate)) 325 mg PO DAILY 10/10/14 calcium citrate 1,000 mg tablet 1,000 mg PO DAILY 10/25/22 multivitamin 1 tab PO DAILY 10/25/22 omeprazole 40 mg capsule,delayed release 40 mg PO DAILY stomach 10/25/22 acetaminophen 325 mg tablet (Tylenol) 650 mg PO Q4H PRN PRN Pain 1-10 Or Fever #0 tabs 10/26/22 oxycodone 5 mg tablet 5 - 10 mg PO Q4H PRN PRN Pain Score 4-10 5 days #30 tabs 10/26/22 The patient was counseled on the following discharge medications and changes in medications for homegoing were reviewed. The Reason for Use, instructions for use, and potential side effects were reviewed for all new medications. The patient's questions regarding all of their medications were answered. The patient was able to verbally demonstrate an understanding of their discharge medications.
== END 2022-10-26 11:27 | disposition home or self-care (01) ==
LOC: ED 08:17 → MS3 08:30
PROVIDERS: Admitting Provider Surgery; Emergency Provider Emergency Medicine; Visit Provider Surgery
PROC: (CPT 47610; principal; 2022-10-25 12:25)
DX: K80.12 Calculus of gallbladder with acute and chronic cholecystitis without obstruction (principal); Z98.84 Bariatric surgery status; Z23 Encounter for immunization
CPT/HCPCS: 47563; 00790; 90686; 36415; 71045; 74300; 76000; 76705; 80048; 80053; 80076; 83690; 84703; 85025; 85610; 85730; 86850; 86900; 86901; 88304; 93005; 96361; 96365; 96375; 96376; 99218; 99251; 99285; J7030; A4216; G0378; G0463; J2405

== ENCOUNTER → 2023-03-14 | Outpatient (CLI) | payer MEDICAID, SELFPAY ==
[2023-03-14 13:33] LABS: T3 Total - Triiodothyronine 1.09 ng/mL (0.6-1.81); Vitamin B12 428 pg/mL (211-911)
[2023-03-14 13:40] LABS: Hemoglobin A1c 4.6 % (3.8-5.6)
[2023-03-14 14:06] LABS: ALB/GLOB Ratio 1.2 RATIO (0.9-2.4); AST(SGOT) 12 U/L (15-37); Alanine Aminotransfer ALT/SGPT 20 U/L (13-56); Albumin, Serum 3.8 g/dL (3.2-5.0); Alkaline Phosphatase 62 U/L (45-117); Anion Gap 6 (5-15); BUN 5 mg/dL (7-18); BUN/Creat Ratio 8.2 RATIO (10-20); Calcium,Total 8.9 mg/dL (8.5-10.1); Chloride 109 mmol/L (98-107); Cholesterol 142 mg/dL (200); Creatinine, Serum 0.61 mg/dL (0.55-1.02); EST Glomerular Filtration Rate 125 mL/min (>60); Est Glom Filt Rate - Afr Amer 152 mL/min (>60); Ferritin 52 ng/mL (8-252); Globulin 3.3 g/dL (2.2-4.2); Glucose 98 mg/dL (74-106); High Density Lipoprotein 58 mg/dL; Iron 28 ug/dL (50-170); Iron Binding Capacity,Total 262 ug/dL (250-450); PERCENT IRON SATURATION 10.7 % (15.0-55.0); Potassium 3.2 mmol/L (3.5-5.1); Protein, Total 7.1 g/dL (6.4-8.2); Sodium Level 140 mmol/L (136-145); T4 Total, Thyroxin 7.6 ug/dL (4.8-13.9); Thyroid Stim Hormone (TSH) 1.25 uIU/mL (0.358-3.74); Triglycerides 69 mg/dL; Very Low Density Lipoprotein 14 mg/dL (5-40)
== END | disposition home or self-care (01) ==
LOC: MTLAB 10:32
DX: Z79.899 Other long term (current) drug therapy (principal)
CPT/HCPCS: 36415; 80053; 80061; 82607; 82728; 82746; 83036; 83540; 83550; 84436; 84443; 84480